=== PATIENT | male | born 1940 | race African-American/Black ===

== ENCOUNTER 2019-05-29 11:50 | Observation (INO) | payer MEDICARE ==
[2019-05-29] MEDS ORDERED: Aspirin Chewable 81 MG TAB ONE (12:13)
[2019-05-29 12:24] LABS: #Basophils 0.1 thou/uL (0.0-0.2); #Eosinphils 0.1 thou/uL (0.0-0.7); #Lymphocytes 1.9 thou/uL (1.20-3.40); #Monocytes 0.7 thou/uL (0.11-0.59); #Neutrophils 3.6 thou/uL (1.40-6.50); %Basophils 0.8 % (0.0-1.0); %Eosinophils 1.2 % (0.0-10.0); %Lymphocytes 29.9 % (21.0-51.0); %Monocytes 11.2 % (0.0-10.0); %Neutrophils 56.9 % (42.0-75.0); Hemoglobin 13.8 g/dL (14.0-18.0); Mean Corpuscular HGB CONC 34.6 g/dL (32.0-36.0); Mean Corpuscular Hemoglobin 30.6 pg (27.0-31.0); Mean Corpuscular Volume 88.4 fL (78.0-98.0); Mean Platelet Volume 10.1 fL (7.4-10.4); Platelet Count 137 thou/uL (130-400); RBC Distribution Width 13.3 % (11.5-14.5); Red Blood Cell (RBC) Count 4.51 mill/uL (4.70-6.10); White Blood Cell (WBC) Count 6.4 thou/uL (4.8-10.8)
[2019-05-29 12:54] LABS: ALT (SGPT) 15 U/L (8-55); AST (SGOT) 26 U/L (5-34); Albumin 3.6 g/dL (3.4-4.8); Alkaline Phosphatase 99 U/L (40-110); Anion Gap 14 mmol/L (10-20); BUN (Urea Nitrogen) 13 mg/dL (8.4-25.7); Bilirubin, Total 1.2 mg/dL (0.2-1.2); Calc. Creatinine Clearance 0 mL/min (70-130); Calcium 8.9 mg/dL (7.8-10.44); Carbon Dioxide 20 mmol/L (23-31); Chloride 105 mmol/L (98-107); Estimated GFR-MDRD 51; Globulin 4.2 g/dL (2.4-3.5); Glucose 169 mg/dL (83-110); Lipase 38 U/L (8-78); Magnesium 1.6 mg/dL (1.6-2.6); Potassium 4.3 mmol/L (3.5-5.1); Protein, Total 7.8 g/dL (5.8-8.1); Sodium 135 mmol/L (136-145)
[2019-05-29 13:10] LABS: CKMB 3.1 ng/mL (0-6.6)
--- NOTE | 2019-05-29 13:10 | RAD ---
PORTABLE CHEST 1 VIEW: Date: 05/29/2019 Time: 1152 hours HISTORY: Chest pain. Pacemaker dysfunction. FINDINGS: The heart size is normal. There is a left-sided pacemaker device with unipolar lead in the right vent ricle. The aorta is tortuous. The lungs are expanded without lobar consolidation, pneumothoraces, or pleural effusions. There is no evidence of felicia pulmonary edema. IMPRESSION: No acute process. POS: [facility]
--- NOTE | 2019-05-29 13:51 | CT ---
CT PULMONARY ANGIOGRAM WITH IV CONTRAST AND 3D POSTPROCESSING: Date: 05/29/2019 HISTORY: Atrial fibrillation, chest pain. FINDINGS: There is good contrast opacification of the pulmonary arterial vasculature without filling defects to suggest pulmonary embolism. There are vascular calcifications without aneurysmal dilatation of the t horacic aorta. No pleural or pericardial effusions are identified. No pneumothoraces, lobar consolida tion, or lung masses are noted. There is a 7 mm peripheral solid-appearing nodule in the right lower lobe (image 72, series 3). Another smaller 4.0 mm similar nodule is seen in the right lower lobe. Emp hysematous changes are present. There is a solid 6.0 mm nodule in the left upper lobe and a similar 4 .0 mm peripheral nodule in the left upper lobe. A 4.0 mm nodule is seen in the central portions of th e left upper lobe. There are degenerative changes in the spine. IMPRESSION: 1. No CT evidence of pulmonary embolism. 2. Indeterminate lung nodules. A follow-up CT scan of the chest is recommended in 6 months. POS: [facility]
[2019-05-29] MEDS ORDERED: Iopamidol 370 76% 100 ML VIAL ONE (14:52)
[2019-05-29] MEDS ORDERED: Labetalol HCl 100 MG/20 ML VIAL ONE (14:59)
--- NOTE | 2019-05-29 15:21 | PDOC.FPRHP ---
- History of Present Illness Chief Complaint: CP History of Present Illness: 79 yo M with pmh of CVA, afib, and CHF presents with 4 hr hx of substernal chest pressure that radiates to the neck. Since onset pt had 325mg ASA and pain resolved. He is currently asymptomatic. Regarding CHF he is unsure of EF. Reports last Echo was one year ago. He has never had AL. last stress was several years ago in [place]. No family hx of CAD. risk factors include HTN, Hx of CVA, Hx of smoking (quit 25years ago). 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 denies: chest pain, palpitation Gastrointestinal: denies: nausea, vomiting Genitourinary: denies: incontinence, dysuria Skin: denies: rashes, lesions Musculoskeletal: denies: pain, tenderness Neurological: denies: syncope, seizure Psychological: denies: anxiety, depression - Vital signs BP: 244/128, Pulse: 77, Resp: 18, Temp: 98.2 (Oral), Pain: 0, O2 sat: 100 on ( Room Air), Time: 05/29/2019 15:02. weight 121kg - Physical Exam Constitutional: NAD, awake, alert and oriented HEENT: normocephalic and atraumatic, EOMI, grossly normal vision, grossly normal hearing Neck: supple, FROM, trachea midline Chest: no-tender to palpation, no lesions Heart: normal S1/S2, no murmurs/rubs/gallops Lungs: CTAB, no respiratory distress Abdomen: soft, non-tender Musculoskeletal: normal structure, normal tone, other (LLE pitting edema +2) Neurological: DTRs 2+ -Neurological: aphasia (chronic) Skin: no rash/lesions, good turgor Heme/Lymphatic: no purpura, no petechia Psychiatric: normal mood and affect, good judgment and insight FMR H&P: Results - Labs Result Diagrams: 05/29/19 12:15 05/29/19 12:15 Lab results: WBC 6.4 thou/uL (4.8-10.8) 05/29/19 12:15 Hgb 13.8 g/dL (14.0-18.0) L 05/29/19 12:15 Hct 39.9 % (42.0-52.0) L 05/29/19 12:15 MCV 88.4 fL (78.0-98.0) 05/29/19 12:15 Plt Count 137 thou/uL (130-400) 05/29/19 12:15 Neutrophils % 56.9 % (42.0-75.0) 05/29/19 12:15 Sodium 135 mmol/L (136-145) L 05/29/19 12:15 Potassium 4.3 mmol/L (3.5-5.1) 05/29/19 12:15 Chloride 105 mmol/L (98-107) 05/29/19 12:15 Carbon Dioxide 20 mmol/L (23-31) L 05/29/19 12:15 BUN 13 mg/dL (8.4-25.7) 05/29/19 12:15 Creatinine 1.59 mg/dL (0.7-1.3) H 05/29/19 12:15 Glucose 169 mg/dL (83-110) H 05/29/19 12:15 Calcium 8.9 mg/dL (7.8-10.44) 05/29/19 12:15 Total Bilirubin 1.2 mg/dL (0.2-1.2) 05/29/19 12:15 AST 26 U/L (5-34) 05/29/19 12:15 ALT 15 U/L (8-55) 05/29/19 12:15 Alkaline Phosphatase 99 U/L (40-110) 05/29/19 12:15 CK-MB (CK-2) 3.1 ng/mL (0-6.6) 05/29/19 12:15 B-Natriuretic Peptide 174.9 pg/mL (0-100) H 05/29/19 12:15 Serum Total Protein 7.8 g/dL (5.8-8.1) 05/29/19 12:15 Albumin 3.6 g/dL (3.4-4.8) 05/29/19 12:15 Lipase 38 U/L (8-78) 05/29/19 12:15 FMR H&P: A/P - Problem List (1) Chest pain Current Visit: Yes Status: Acute Code(s): R07.9 - CHEST PAIN, UNSPECIFIED (2) Edema, lower extremity Current Visit: Yes Status: Acute Code(s): R60.0 - LOCALIZED EDEMA (3) Lung nodule Current Visit: Yes Status: Acute Code(s): R91.1 - SOLITARY PULMONARY NODULE (4) CHF (congestive heart failure) Current Visit: Yes Status: Acute Code(s): I50.9 - HEART FAILURE, UNSPECIFIED (5) CKD (chronic kidney disease) Current Visit: Yes Status: Acute Code(s): N18.9 - CHRONIC KIDNEY DISEASE, UNSPECIFIED (6) Afib Current Visit: Yes Status: Acute Code(s): I48.91 - UNSPECIFIED ATRIAL FIBRILLATION (7) HTN (hypertension) Current Visit: Yes Status: Acute Code(s): I10 - ESSENTIAL (PRIMARY) HYPERTENSION (8) HLD (hyperlipidemia) Current Visit: Yes Status: Acute Code(s): E78.5 - HYPERLIPIDEMIA, UNSPECIFIED (9) Seizure disorder Current Visit: Yes Status: Acute Code(s): G40.909 - EPILEPSY, UNSP, NOT INTRACTABLE, WITHOUT STATUS EPILEPTICUS - Plan CP, 2/2 ACS vs. MSK vs. GI A- trop .06 on presentation, could be 2/2 CKD. EKG shows no ST elevation. CXR and CT chest show no etiology of pain. P- admit to tele obs -trend trops -ASA daily -nitro SL prn -plan for stress test after negative serial trops LLE edema A- pt reports it is chronic however he has never had US P- will get US Lung nodules A- seen on Chest CT P- recommend f/u imaging in 6 months outpt CHF -I/Os, daily weights, home meds CKD3 -MD aware, will avoid nephrotoxic meds. Renally dose meds afib, HTN, HLD, Hx of CVA, seizure d/o -stable, continue home medications CODE: FULL
[2019-05-29] MEDS ORDERED: hydrALAZINE 20 MG/ML VIAL ONE (15:22)
[2019-05-29] MEDS ORDERED: Ondansetron ODT 4 MG TAB PO PRN (16:22)
[2019-05-29] MEDS ORDERED: Acetaminophen 325 MG TAB PO PRN (16:22)
[2019-05-29] MEDS ORDERED: Calcium Carbonate 500 MG ChewTAB PO PRN (16:22)
[2019-05-29] MEDS ORDERED: Nitroglycerin 0.4 MG TAB (25 Tab Bottle) SL PRN (16:22)
[2019-05-29 16:29] VITALS: BMI 34.4
--- NOTE | 2019-05-29 17:01 | ULT ---
LEFT LOWER EXTREMITY DOPPLER VENOUS ULTRASOUND PROVIDED CLINICAL HISTORY: Left lower extremity edema and concern for DVT TECHNIQUE: Grayscale and color Doppler sonography with spectral analysis was performed of the left common femora l, femoral, popliteal, posterior tibial, greater saphenous and profunda femoral veins. FINDINGS: There is normal compression, flow and augmentation seen within the deep venous structures o f the left lower extremity. IMPRESSION: No sonographic evidence for left lower extremity deep venous thrombosis. There is subcutaneous edema seen within the left foreleg.
[2019-05-29 18:49] LABS: Troponin I 0.078 ng/mL (< 0.028)
[2019-05-29] MEDS ORDERED: Atorvastatin Calcium 40 MG TAB PO SCH (21:00)
[2019-05-29] MEDS ORDERED: hydrALAZINE 25 MG TAB PO SCH (21:00)
[2019-05-29] MEDS ORDERED: levETIRAcetam 500 MG TAB PO SCH (21:00)
[2019-05-29] MEDS: Apixaban 5 MG TAB PO SCH (21:17)
[2019-05-29 22:37] LABS: Troponin I 0.074 ng/mL (< 0.028)
[2019-05-29 23:08] LABS: Hemoglobin 13.7 g/dL (14.0-18.0); Platelet Count 126 thou/uL (130-400)
[2019-05-30 05:19] LABS: #Eosinphils 0.1 thou/uL (0.0-0.7); #Lymphocytes 1.7 thou/uL (1.20-3.40); #Monocytes 0.7 thou/uL (0.11-0.59); #Neutrophils 3.1 thou/uL (1.40-6.50); %Basophils 0.5 % (0.0-1.0); %Eosinophils 1.7 % (0.0-10.0); %Lymphocytes 30.1 % (21.0-51.0); %Neutrophils 54.7 % (42.0-75.0); Mean Corpuscular HGB CONC 34.9 g/dL (32.0-36.0); Mean Corpuscular Hemoglobin 30.9 pg (27.0-31.0); Mean Corpuscular Volume 88.4 fL (78.0-98.0); Mean Platelet Volume 10.2 fL (7.4-10.4); Platelet Count 134 thou/uL (130-400); RBC Distribution Width 13.3 % (11.5-14.5); Red Blood Cell (RBC) Count 4.53 mill/uL (4.70-6.10); White Blood Cell (WBC) Count 5.6 thou/uL (4.8-10.8)
[2019-05-30] MEDS: cloNIDine 0.2 MG TAB PO PRN ×2 (05:21→15:00)
[2019-05-30 05:29] LABS: Anion Gap 12 mmol/L (10-20); BUN (Urea Nitrogen) 10 mg/dL (8.4-25.7); Calc. Creatinine Clearance 76 mL/min (70-130); Carbon Dioxide 24 mmol/L (23-31); Chloride 105 mmol/L (98-107); Estimated GFR-MDRD 62; Glucose 111 mg/dL (83-110); Potassium 3.6 mmol/L (3.5-5.1); Sodium 137 mmol/L (136-145)
--- NOTE | 2019-05-30 08:55 | PDOC.FM ---
- Subjective Subjective: Pt doing well with no complaints, good rest overnight. No CP, no palpitations, no sob, no cough - Objective Vital Signs & Weight: Vital Signs (12 hours) Temp Pulse Resp BP BP Pulse Ox 05/30/19 07:45 97.4 F L 62 18 181/93 H 99 05/30/19 06:38 66 182/89 H 100 05/30/19 05:21 206/96 H 05/30/19 05:17 206/96 H 05/30/19 04:28 98.6 F 79 16 100 05/30/19 00:38 98.6 F 62 16 175/91 H 100 Weight Weight 118.75 kg I&O: 05/29/19 05/30/19 05/31/19 06:59 06:59 06:59 Intake Total 1210 Output Total 1885 150 Balance -675 -150 Result Diagrams: 05/30/19 04:49 05/30/19 04:49 Phys Exam - Physical Examination Constitutional: NAD HEENT: moist MMs, sclera anicteric Neck: supple, full ROM Respiratory: no wheezing, clear to auscultation bilateral Cardiovascular: RRR, no significant murmur Gastrointestinal: soft, non-tender Musculoskeletal: pulses present, edema present (chronic) Neurological: normal sensation, moves all 4 limbs Psychiatric: normal affect, A&O x 3 Skin: no rash, normal turgor Dx/Plan (1) Chest pain Code(s): R07.9 - CHEST PAIN, UNSPECIFIED Status: Acute (2) Edema, lower extremity Code(s): R60.0 - LOCALIZED EDEMA Status: Acute (3) Lung nodule Code(s): R91.1 - SOLITARY PULMONARY NODULE Status: Acute (4) CHF (congestive heart failure) Code(s): I50.9 - HEART FAILURE, UNSPECIFIED Status: Acute (5) CKD (chronic kidney disease) Code(s): N18.9 - CHRONIC KIDNEY DISEASE, UNSPECIFIED Status: Acute (6) Afib Code(s): I48.91 - UNSPECIFIED ATRIAL FIBRILLATION Status: Acute (7) HTN (hypertension) Code(s): I10 - ESSENTIAL (PRIMARY) HYPERTENSION Status: Acute (8) HLD (hyperlipidemia) Code(s): E78.5 - HYPERLIPIDEMIA, UNSPECIFIED Status: Acute (9) Seizure disorder Code(s): G40.909 - EPILEPSY, UNSP, NOT INTRACTABLE, WITHOUT STATUS EPILEPTICUS Status: Acute - Plan Plan: CP, 2/2 ACS vs. MSK vs. GI A- stable, pt currently asymptomatic, trops .069->.078->.074. Likely a chronic elevation 2/2 CKD. EKG shows no ST elevation. CXR and CT chest show no etiology of pain. P- ASA daily -nitro SL prn -plan for stress test after negative serial trops Lung nodules A- seen on Chest CT P- recommend f/u imaging in 6 months outpt LLE edema -chronic, LE US unremarkable CHF -I/Os, daily weights, home meds CKD3 -MD aware, will avoid nephrotoxic meds. Renally dose meds afib, HTN, HLD, Hx of CVA, seizure d/o -stable, continue home medications CODE: FULL Addendum - Attending - Attending Attestation Date/Time: 05/30/19 [id number] I personally evaluated the patient and discussed the management with Dr. Powell. I agree with the History, Examination, Assessment and Plan documented above with any addition or exceptions noted below. Await cardiology input.
[2019-05-30] MEDS ORDERED: Tamsulosin HCl 0.4 MG CAP PO SCH ×2 (09:00)
[2019-05-30] MEDS ORDERED: Famotidine 20 MG TAB PO SCH (09:00)
[2019-05-30] MEDS ORDERED: Bupropion 150 MG XL TAB PO SCH (09:00)
[2019-05-30] MEDS ORDERED: Aspirin 81 mg Enteric Coated Tablet PO SCH (09:00)
[2019-05-30] MEDS ORDERED: hydrALAZINE 25 MG TAB PO SCH (09:00)
[2019-05-30] MEDS: Apixaban 5 MG TAB PO SCH (09:01)
[2019-05-30] MEDS: Furosemide 20 MG TAB PO SCH ×2 (09:02→15:00)
--- NOTE | 2019-05-30 13:59 | NM ---
EXAM: Nuclear Medicine Cardiac SPECT with EF and wall motion: HISTORY: Chest pain Protocol: Exam was performed using adenosine protocol. The patient is injected with 27.0 millicuries of technetium 99m sestamibi intravenously for stress im ages. The patient is injected with 9.4 millicuries of technetium 99 sestamibi intravenously for resting jaylen ges. Multiple SPECT images are performed in the short axis, vertical long axis, and horizontal long axis. FINDINGS: No scan evidence for infarct or ischemia. TID:0.91 LHR:0.30 EDV:110 mL EF:54% Wall motion:Unremarkable IMPRESSION: Unremarkable cardiac SPECT with EF and wall motion.
[2019-05-30 14:53] VITALS: TEMP 97.6
--- NOTE | 2019-05-30 16:29 | CON ---
DATE OF CONSULTATION: 05/30/2019 REASON FOR CONSULTATION: Chest pain. HISTORY OF PRESENT ILLNESS: Mr. Nevarez is a pleasant 79-year-old gentleman who comes to the hospital for chest pain. He apparently moved to this area from [place] about a month ago. He ran out of medicines a week ago. He presented with chest tightness and a very elevated blood pressure. The 1st recorded blood pressure was in 230s/130s in the ER. He was given aspirin and some nitroglycerin paste. Eventually, his pain improved. On my evaluation, his pain is better. He denies any chest pain, tightness, or pressure. His blood pressure is still elevated in the 180s. He has a history of atrial fibrillation and has been on Eliquis, but again he ran out of all these medications about a week ago. PAST MEDICAL HISTORY: 1. Atrial fibrillation. 2. Hypertension. 3. Hyperlipidemia. 4. History of CVA with chronic aphasia. 5. Seizure disorder. 6. Chronic kidney disease, stage 3. 7. History of heart failure, unclear what type. 8. A single-chamber pacemaker placement, unclear as to reason why, this is not a defibrillator. SURGICAL HISTORY: Pacemaker placement, single-chamber. FAMILY HISTORY: Noncontributory. SOCIAL HISTORY: No alcohol, tobacco, or drugs. He smoked tobacco and marijuana about 20 years ago. REVIEW OF SYSTEMS: A 12-point review of systems was done and was all negative unless stated in the history of present illness. PHYSICAL EXAMINATION: VITAL SIGNS: Temperature 97.6, pulse 106, respiratory rate 20, saturating 100% on room air, blood pressure 181/93, but has been as high as 203/111 and on admission 230/130. GENERAL: Awake, alert, and oriented to person and place, difficulty with time, in no distress. HEENT: Normocephalic and atraumatic. NECK: Supple. LUNGS: Clear to auscultation. CARDIOVASCULAR: S1 and S2. Irregular heart rate in the 70s. ABDOMEN: Soft. Positive bowel sounds. EXTREMITIES: Trace edema. SKIN: Warm and dry. LABORATORY DATA: Laboratory work was reviewed. CBC is unremarkable. White count of 5.6, hemoglobin of 14, hematocrit 40.1, and platelet count of 134. D-dimer was elevated at 1.21. Chemistries were unremarkable except for creatinine of 1.35, up from 1.32, some minimal increase. GFR is 62. Troponin was 0.07, 0.07, and 0.07 and BNP of 174. CT of the chest was unremarkable except for a pulmonary nodule, which will be followed by primary team. Stress test was unremarkable with no evidence of reversible ischemia and LV function at 54%. ASSESSMENT AND PLAN: 1. Chest pain. 2. Hypertensive emergency. 3. Medication noncompliance. 4. History of cerebrovascular accident. 5. What appears to be chronic atrial fibrillation. PLAN: 1. Restart Eliquis for stroke prophylaxis. 2. Restart home medications for blood pressure control. Up titrate to blood pressure less than 160 before discharge. 3. Most likely his episode of chest pain was related to his elevated blood pressure, it got better with blood pressure control more than anything else. Thank you for allowing me to participate in the care of this patient. We will continue to follow. Job ID: [id number]
[2019-05-30 16:37] VITALS: BP 140/83
--- NOTE | 2019-05-30 19:33 | DIS ---
DATE OF ADMISSION: 05/29/2019 DATE OF DISCHARGE: 05/30/2019 RESIDENT: Carlo Powell MD. I saw this patient for a total of 2 days. ADMITTING ATTENDING: Carlo Clement MD. CONSULTS: Cardiology, Dr. Hall. PROCEDURES: 1. Chest x-ray on 05/29/2019, no acute cardiopulmonary processes. 2. Chest thorax CTA on 05/29/2019. Impression; some scattered pulmonary nodules. Recommend followup in 6 months. 3. Vascular ultrasound on 05/29/2019. No evidence of DVT in left lower extremity. 4. Stress test nuclear medicine on 05/30/2019. Impression; unremarkable cardiac SPECT with EF and wall motion. DISCHARGE MEDICATIONS: 1. Atorvastatin 40 mg p.o. daily. 2. Eliquis 5 mg p.o. b.i.d. 3. Keppra 750 mg p.o. daily. 4. Metoprolol succinate ER 24 hours, 200 mg p.o. daily. 5. Wellbutrin. 6. Flomax 0.4 mg p.o. daily. 7. Clonidine 0.2 mg p.o. p.r.n. resumed at home. 8. Furosemide 20 mg p.o. b.i.d. 9. Hydralazine resumed at home. The patient did not know dosage, had 2 bottles left at home. 10. Famotidine 20 mg p.o. daily. DISCONTINUED MEDICATIONS: None. PRIMARY DIAGNOSIS: Chest pain, likely secondary to gastroesophageal reflux. SECONDARY DIAGNOSES: Left lower extremity edema; history of congestive heart failure; lung nodules; chronic kidney injury 3; atrial fibrillation; hypertension; hyperlipidemia; history of cerebrovascular accident with aphasia; seizure disorder. HISTORY OF PRESENT ILLNESS/HOSPITAL COURSE: This is a 79-year-old male, who presented to the ED with chest pain. He has history of CVA and so was admitted for chest pain rule out ACS. The troponins increased initially from 0.6 to 0.78, and then decreased to 0.074. Chest pain had resolved. EKG was normal. Chest x-ray was normal. The patient also had CT chest done, but no concern for PE, and the patient had left lower extremity edema. This and doppler ultrasound of the left lower extremity were both negative; however, they did incidentally find some pulmonary lung nodules, which recommended followup in 6 months. Cardiology was consulted as the patient had elevated troponins, for permission to get stress test. The patient did end up getting nuclear stress test, which was negative. The patient had plans for discharge home to follow up with PCP, Dr. Keenan and with Cardiology, Dr. Hall. DISPOSITION: Stable. DISCHARGE INSTRUCTIONS: 1. Location: Home. 2. Activity: As tolerated. 3. Diet: Diabetic and heart healthy diet. 4. Followup: Follow up with Dr. Keenan in 1 to [address] Hall in 2 to 3 weeks. Job ID: [id number]
== END 2019-05-30 18:30 | disposition home or self-care (01) ==
LOC: ERS 11:50 → 2SW 14:43
PROVIDERS: ADMIT Family Medicine; ATTEND Family Medicine
DX: R07.9 Chest pain, unspecified (principal); I16.1 Hypertensive emergency; R60.0 Localized edema; I13.0 Hypertensive heart and chronic kidney disease with heart failure and stage 1 through stage 4 chronic kidney disease, or unspecified chronic kidney disease; R91.1 Solitary pulmonary nodule; I50.9 Heart failure, unspecified; N18.3 Chronic kidney disease, stage 3 (moderate); I48.91 Unspecified atrial fibrillation; E78.5 Hyperlipidemia, unspecified; G40.909 Epilepsy, unspecified, not intractable, without status epilepticus; I69.320 Aphasia following cerebral infarction; Z79.01 Long term (current) use of anticoagulants; Z79.899 Other long term (current) drug therapy; Z91.14 Patient's other noncompliance with medication regimen; Z95.0 Presence of cardiac pacemaker
CPT/HCPCS: 36415; 71045; 71275; 78452; 80048; 80053; 82553; 83690; 83735; 83880; 84484; 85025; 85379; 93005; 93017; 96374; 96375; A9500; G0378; J0153; J0360; Q9967

== ENCOUNTER 2019-08-29 22:32 | Emergency (ER) | payer MEDICARE ==
[2019-08-29 23:21] LABS: #Basophils 0.1 thou/uL (0.0-0.2); #Eosinphils 0.1 thou/uL (0.0-0.7); #Lymphocytes 2.1 thou/uL (1.20-3.40); #Monocytes 0.6 thou/uL (0.11-0.59); #Neutrophils 2.5 thou/uL (1.40-6.50); %Basophils 1.1 % (0.0-1.0); %Eosinophils 2.1 % (0.0-10.0); %Lymphocytes 39.9 % (21.0-51.0); %Monocytes 11.1 % (0.0-10.0); %Neutrophils 45.8 % (42.0-75.0); Hemoglobin 13.5 g/dL (14.0-18.0); Mean Corpuscular HGB CONC 34.6 g/dL (32.0-36.0); Mean Corpuscular Hemoglobin 30.8 pg (27.0-31.0); Mean Platelet Volume 10.7 fL (7.4-10.4); Platelet Count 118 thou/uL (130-400); RBC Distribution Width 12.9 % (11.5-14.5); White Blood Cell (WBC) Count 5.3 thou/uL (4.8-10.8)
[2019-08-29 23:31] LABS: ALT (SGPT) 13 U/L (8-55); AST (SGOT) 19 U/L (5-34); Albumin 3.5 g/dL (3.4-4.8); Alkaline Phosphatase 107 U/L (40-110); Anion Gap 12 mmol/L (10-20); BUN (Urea Nitrogen) 19 mg/dL (8.4-25.7); Bilirubin, Total 0.5 mg/dL (0.2-1.2); Calc. Creatinine Clearance 0 mL/min (70-130); Calcium 8.6 mg/dL (7.8-10.44); Carbon Dioxide 23 mmol/L (23-31); Chloride 105 mmol/L (98-107); Estimated GFR-MDRD 55; Globulin 4.3 g/dL (2.4-3.5); Glucose 97 mg/dL (83-110); Potassium 4.3 mmol/L (3.5-5.1); Protein, Total 7.8 g/dL (5.8-8.1); Sodium 136 mmol/L (136-145)
--- NOTE | 2019-08-31 15:17 | EKG ---
Test Reason : Blood Pressure : / mmHG Vent. Rate : 078 BPM Atrial Rate : 127 BPM P-R Int : 000 ms QRS Dur : 092 ms QT Int : 412 ms P-R-T Axes : 000 052 -77 degrees QTc Int : 469 ms Atrial fibrillation with frequent ventricular-paced complexes Cannot rule out Inferior infarct , age undetermined Abnormal ECG Confirmed by ESTEFANI CHUA M.D. ([id number]), film editor SCARLETT CHARLES ([id number]) on 08/31/2019 3:16:49 PM Referred By: Confirmed By:ESTEFANI CHUA M.D.
== END 2019-08-29 23:31 | disposition home or self-care (01) ==
LOC: ERS 22:32
DX: I10 Essential (primary) hypertension (principal); E78.00 Pure hypercholesterolemia, unspecified; I48.91 Unspecified atrial fibrillation; Z79.899 Other long term (current) drug therapy
CPT/HCPCS: 80053; 85025; 93005

== ENCOUNTER 2019-11-30 12:25 | Inpatient (IN) | payer MEDICARE, OTHER ==
[2019-11-30 13:23] LABS: #Eosinphils 0.1 thou/uL (0.0-0.7); #Lymphocytes 1.7 thou/uL (1.20-3.40); #Monocytes 0.7 thou/uL (0.11-0.59); #Neutrophils 2.7 thou/uL (1.40-6.50); %Basophils 0.2 % (0.0-1.0); %Eosinophils 2.4 % (0.0-10.0); %Lymphocytes 33.3 % (21.0-51.0); %Monocytes 13.2 % (0.0-10.0); %Neutrophils 50.9 % (42.0-75.0); Hemoglobin 9.6 g/dL (14.0-18.0); Mean Corpuscular HGB CONC 33.8 g/dL (32.0-36.0); Mean Corpuscular Hemoglobin 28.9 pg (27.0-31.0); Mean Corpuscular Volume 85.4 fL (78.0-98.0); Mean Platelet Volume 9.6 fL (7.4-10.4); Platelet Count 181 thou/uL (130-400); RBC Distribution Width 13.6 % (11.5-14.5); Red Blood Cell (RBC) Count 3.33 mill/uL (4.70-6.10); White Blood Cell (WBC) Count 5.2 thou/uL (4.8-10.8)
[2019-11-30 13:30] LABS: INR-International Normal Ratio 1.8; PTT 38.8 sec (22.9-36.1); Prothrombin Time 21.1 sec (12.0-14.7)
[2019-11-30 13:43] LABS: ALT (SGPT) 12 U/L (8-55); AST (SGOT) 14 U/L (5-34); Albumin 3.3 g/dL (3.4-4.8); Alkaline Phosphatase 91 U/L (40-110); Anion Gap 15 mmol/L (10-20); BUN (Urea Nitrogen) 23 mg/dL (8.4-25.7); Bilirubin, Total 0.6 mg/dL (0.2-1.2); Calc. Creatinine Clearance 0 mL/min (70-130); Calcium 8.5 mg/dL (7.8-10.44); Carbon Dioxide 20 mmol/L (23-31); Chloride 106 mmol/L (98-107); Estimated GFR-MDRD 54; Globulin 4.2 g/dL (2.4-3.5); Glucose 103 mg/dL (83-110); Potassium 4.1 mmol/L (3.5-5.1); Protein, Total 7.5 g/dL (5.8-8.1); Sodium 137 mmol/L (136-145)
[2019-11-30] MEDS ORDERED: Acetaminophen 325 MG TAB PO PRN (14:00)
[2019-11-30] MEDS ORDERED: Ondansetron PF 4 MG/2 ML Vial IVP PRN (14:00)
[2019-11-30] MEDS ORDERED: Ondansetron ODT 4 MG TAB PO PRN (14:00)
[2019-11-30] MEDS ORDERED: Sodium Chloride 0.9% 1,000 ML IV SCH (14:00)
[2019-11-30] MEDS ORDERED: Calcium Carbonate 500 MG ChewTAB PO PRN (14:00)
[2019-11-30 15:57] LABS: Magnesium 1.8 mg/dL (1.6-2.6)
--- NOTE | 2019-11-30 15:59 | PDOC.HHP ---
Hospitalist HPI - History of Present Illness GI bleeding History of Present Illness: Patient is a 79-year-old male with atrial fibrillation on anticoagulation presented to the emergency room with bleeding per rectum over the last 3 to 4 days. He reports bright red blood moderate in amount when he was having bowel movement. He felt generally weak and fatigue however denies any lightheadedness, palpitations or syncope. He denies any nausea, abdominal pain, hematemesis or melena. He denies similar episode in the past. He reports that 2 to 3 years ago he had upper GI bleeding requiring EGD in [place]. Last dose of Eliquis was this morning. No chest pain, shortness of breath or palpitations reported. He normally follows Dr. Hall. In the emergency room is initial vital signs showed temperature 98.6 with respiration of 18 pulse rate of 76 with a blood pressure of 146/98. O2 saturation was 100% on room air. His hemoglobin was 9.6 compared to his baseline hemoglobin of 1314 in August of this year. INR was 1.8 with a PT of 21.1 and PTT of 38.8. Hospitalist ROS - Review of Systems Respiratory: denies: cough, dry, shortness of breath, hemoptysis, SOB with excertion, pleuritic pain, sputum, wheezing, other Cardiovascular: denies: chest pain, palpitations, orthopnea, paroxysmal noc. dyspnea, edema, light headedness, other All other systems reviewed; all pertinent +/- noted in HPI/Subj - Medication Medications: No known drug allergies Patient is unable to remember all of his home medication. 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 Spouse is the D POA - Exam General Appearance: NAD Eye: PERRL, anicteric sclera Eye - other findings: Pale conjunctiva ENT: normocephalic atraumatic, no oropharyngeal lesions Neck: supple, no JVD, no thyromegaly, no lymphadenopathy Heart: RRR, no gallops, no rubs, normal peripheral pulses Respiratory: no wheezes, no rales, no ronchi, normal chest expansion Gastrointestinal: soft, non-tender, non-distended, no guarding, no rigidity Extremities: no cyanosis, no clubbing, no edema Skin: normal turgor Neurological: cranial nerve grossly intact, normal sensation to touch, no weakness, no focal deficits Musculoskeletal: normal tone, normal strength, generalized weakness Psychiatric: normal affect, A&O x 3 Hospitalist Results - Labs Result Diagrams: 11/30/19 13:04 11/30/19 13:04 Lab results: WBC 5.2 thou/uL (4.8-10.8) 11/30/19 13:04 Hgb 9.6 g/dL (14.0-18.0) L 11/30/19 13:04 Hct 28.4 % (42.0-52.0) L 11/30/19 13:04 MCV 85.4 fL (78.0-98.0) 11/30/19 13:04 Plt Count 181 thou/uL (130-400) 11/30/19 13:04 Neutrophils % 50.9 % (42.0-75.0) 11/30/19 13:04 Sodium 137 mmol/L (136-145) 11/30/19 13:04 Potassium 4.1 mmol/L (3.5-5.1) 11/30/19 13:04 Chloride 106 mmol/L (98-107) 11/30/19 13:04 Carbon Dioxide 20 mmol/L (23-31) L 11/30/19 13:04 BUN 23 mg/dL (8.4-25.7) 11/30/19 13:04 Creatinine 1.51 mg/dL (0.7-1.3) H 11/30/19 13:04 Glucose 103 mg/dL (83-110) 11/30/19 13:04 Calcium 8.5 mg/dL (7.8-10.44) 11/30/19 13:04 Total Bilirubin 0.6 mg/dL (0.2-1.2) 11/30/19 13:04 AST 14 U/L (5-34) 11/30/19 13:04 ALT 12 U/L (8-55) 11/30/19 13:04 Alkaline Phosphatase 91 U/L (40-110) 11/30/19 13:04 Serum Total Protein 7.5 g/dL (5.8-8.1) 11/30/19 13:04 Albumin 3.3 g/dL (3.4-4.8) L 11/30/19 13:04 - EKG Interpretation EKG: Paced rhythm on telemetry monitorby my review Hospitalist H&P A/P - Problem (1) GI bleeding Code(s): K92.2 - GASTROINTESTINAL HEMORRHAGE, UNSPECIFIED Status: Acute (2) Acute blood loss anemia Code(s): D62 - ACUTE POSTHEMORRHAGIC ANEMIA Status: Acute (3) Chronic atrial fibrillation Code(s): I48.20 - CHRONIC ATRIAL FIBRILLATION, UNSPECIFIED Status: Acute (4) Iron deficiency anemia due to chronic blood loss Code(s): D50.0 - IRON DEFICIENCY ANEMIA SECONDARY TO BLOOD LOSS (CHRONIC) St atus: Acute (5) CKD (chronic kidney disease) stage 3, GFR 30-59 ml/min Code(s): N18.3 - CHRONIC KIDNEY DISEASE, STAGE 3 (MODERATE) Status: Chronic (6) HLD (hyperlipidemia) Code(s): E78.5 - HYPERLIPIDEMIA, UNSPECIFIED Status: Chronic (7) HTN (hypertension) Code(s): I10 - ESSENTIAL (PRIMARY) HYPERTENSION Status: Chronic (8) Seizure disorder Code(s): G40.909 - EPILEPSY, UNSP, NOT INTRACTABLE, WITHOUT STATUS EPILEPTICUS Status: Chronic - Plan Plan: Patient will be monitored on the medical floor. Will monitor H&H closely. Start IV Protonix twice daily. He will receive IV iron. Clear liquid diet. Will check orthostatic vitals. Monitor vital signs every 4 hourly. Hold Eliquis. Consult gastroenterology service. Physical therapy evaluation. Resume home medications once verified. Recheck labs in a.m. Replace magnesium. Patient will require 2 to 3 days for stabilization. GI recommended to wait for 24 to 48 hours prior to any endoscopic intervention due to anticoagulation. His last dose of Eliquis was this morning.
[2019-11-30] MEDS ORDERED: Magnesium 2 GM/50 ML 2 GM in Premix Bag 1 BAG IVPB SCH (16:15)
[2019-11-30 17:19] VITALS: BMI 31.7
[2019-11-30] MEDS ORDERED: Iron, Sodium Ferric Gluconate 250 MG in Sodium Chloride 0.9% 100 ML IVPB SCH (18:00)
[2019-11-30 18:17] LABS: Hemoglobin 10.3 g/dL (14.0-18.0)
[2019-11-30] MEDS: cloNIDine 0.1 MG TAB PO PRN (19:53)
[2019-11-30] MEDS: Folic Acid 1 MG TAB PO SCH (20:16)
[2019-11-30] MEDS: Cyanocobalamin (Vitamin B-12) 1,000 MCG TAB PO SCH (20:16)
[2019-11-30] MEDS: Atorvastatin Calcium 40 MG TAB PO SCH (20:16)
[2019-11-30] MEDS: Multivit, Therapeutic 1 TAB PO SCH (20:16)
[2019-11-30] MEDS: Pantoprazole 40 MG VIAL IVP SCH (20:16)
[2019-12-01] MEDS: cloNIDine 0.1 MG TAB PO PRN ×2 (00:03→08:08)
[2019-12-01 06:25] LABS: #Eosinphils 0.1 thou/uL (0.0-0.7); #Lymphocytes 0.8 thou/uL (1.20-3.40); #Neutrophils 6.2 thou/uL (1.40-6.50); %Basophils 0.4 % (0.0-1.0); %Eosinophils 0.9 % (0.0-10.0); %Lymphocytes 10.4 % (21.0-51.0); %Neutrophils 76.3 % (42.0-75.0); Hemoglobin 9.4 g/dL (14.0-18.0); Mean Corpuscular Hemoglobin 29.2 pg (27.0-31.0); Mean Corpuscular Volume 85.9 fL (78.0-98.0); Mean Platelet Volume 9.2 fL (7.4-10.4); Platelet Count 168 thou/uL (130-400); RBC Distribution Width 13.6 % (11.5-14.5); Red Blood Cell (RBC) Count 3.22 mill/uL (4.70-6.10); White Blood Cell (WBC) Count 8.1 thou/uL (4.8-10.8)
[2019-12-01 06:45] LABS: Anion Gap 14 mmol/L (10-20); BUN (Urea Nitrogen) 21 mg/dL (8.4-25.7); Calc. Creatinine Clearance 69 mL/min (70-130); Calcium 8.5 mg/dL (7.8-10.44); Carbon Dioxide 21 mmol/L (23-31); Chloride 104 mmol/L (98-107); Estimated GFR-MDRD 59; Glucose 112 mg/dL (83-110); Sodium 135 mmol/L (136-145)
[2019-12-01] MEDS: Pantoprazole 40 MG VIAL IVP SCH ×2 (08:08→20:21)
[2019-12-01] MEDS: Furosemide 20 MG TAB PO SCH (08:08)
[2019-12-01] MEDS: levETIRAcetam 500 MG TAB PO SCH (08:08)
[2019-12-01] MEDS ORDERED: Iron, Sodium Ferric Gluconate 250 MG in Sodium Chloride 0.9% 100 ML IVPB SCH (09:15)
--- NOTE | 2019-12-01 10:36 | CON ---
DATE OF CONSULTATION: 11/30/2019 REFERRING PHYSICIAN: Baldomero Rodrigues MD REASON FOR CONSULTATION: Rectal bleeding, anemia due to blood loss. HISTORY OF PRESENT ILLNESS: Mr. Yony Nevarez is a 79-year-old male, hospitalized this evening through the ER because of hematochezia. The patient has been having rectal bleeding over the last 3 to 4 days. The bleeding is bright red in color. The bleeding is painless. He has no perianal discomfort, status post hemorrhoids. No abdominal pain. Denies nausea, vomiting. No history of dyspepsia, indigestion. The patient is on Eliquis because of previous stroke. The patient never had a colonoscopy; however, he has had a oscopy a few years ago for bleeding ulcer in the past. The patient has had a CVS recovery. He has good movement of the extremities, but he has expressive aphasia. He tries to stutter and try to express himself and takes a while. The patient used to live in [place] before. He has moved to recently. Apparently, he was seen in the ER in May of 2019 with chest pain and uncontrolled hypertension. This was because of his medication and could not refill the medication. He was hospitalized and was seen by Dr. Melvin Hall. It was felt the chest pain is because probably from the uncontrolled hypertension. He was put back on hypertension medicines and blood pressure normalized. He has done well since discharge. In the last admission in May of 2019, he had a normal CBC. At this time when he came to the ER, he is anemic with hemoglobin of 9.8. The patient had no other relevant history. ALLERGIES: NONE. SOCIAL HISTORY: He is . He does not drink alcohol and does not smoke. MEDICAL ILLNESS: 1. Obesity. 2. Hypertension. 3. Hyperlipidemia. 4. Status post CVA with residual expressive aphasia. 5. Status post pacemaker implant. 6. Prostatic hypertrophy. MEDICATIONS: List reviewed, which include: 1. Clonidine. 2. Tamsulosin. 3. Atorvastatin. 4. Famotidine. 5. Furosemide. 6. Metoprolol. 7. Levetiracetam. FAMILY HISTORY: Father had some unknown cancer. REVIEW OF SYSTEMS: Remarkable for previous CVA with recovery, but he has right aphasia, history of seizure disorder. LUNGS: No chronic coughing. No hemoptysis. No dyspnea. CARDIOVASCULAR: No chest pain. No palpitation. No orthopnea or PND. GI: No abdominal pain, no nausea, no vomiting, but has hematochezia. : No dysuria, hematuria or frequent urination. MUSCULOSKELETAL: No back pain or arthralgias. NEUROPSYCHIATRY: No depression, anxiety. HEENT: No chronic headache. Eyes, no impaired vision, although he has no hearing loss. Nose, no nosebleed. Throat, no sore throat or dysphagia. PHYSICAL EXAMINATION: GENERAL: He is awake, alert, and communicative. However, he has difficulty expressing things and due to this, does stutter. VITAL SIGNS: Afebrile. Pulse is 81, blood pressure is 177/90. HEENT: Conjunctivae are clear. NECK: Supple. CARDIOVASCULAR: Normal heart sounds. LUNGS: Clear to auscultation. ABDOMEN: Soft and nontender. No organomegaly. No masses. EXTREMITIES: Reveal no edema. LABORATORY DATA: CBC; WBC 5200, hemoglobin 9.6, hematocrit 28.4, MCV 85.4, platelet count 181,000, polymorphs 50, lymphocytes 33, monocytes 13. His Chem-7 shows normal electrolytes, BUN is 23, creatinine is 1.51, glucose 103, calcium 8.5. Iron is 35, TIBC 278, ferritin 44.05, bilirubin 0.6, AST 14, ALT 12, alkaline phosphatase 91, albumin 3.3. CLINICAL IMPRESSION: 1. A 79-year-old male, previous cerebrovascular accident, expressive aphasia. Presents with hematochezia, which is painless. The bleeding appears to be mild to moderate as blood count is found low at 9.8 to 10.3. He never had a colonoscopy. There is no family history of colon cancer. 2. Status post cerebrovascular accident with residual expressive aphasia. 3. Hypertension. 4. Hyperlipidemia. 5. Seizure disorder. 6. Prostatic hypertrophy. 7. Status post pacemaker implant. RECOMMENDATION: 1. Hold of Eliquis. 2. Serial H and H. 3. Clear liquid diet. 4. Colonoscopy, hopefully Monday as he needs to be a code status for 48 hours. Job ID: [id number]
[2019-12-01 12:24] LABS: SARS-CoV-2 MS2 Positive; SARS-CoV-2 N Gene Negative; SARS-CoV-2 S Gene Negative; SARS-CoV-2 by NAA Not Detected (NotDetected); SARS-CoV-2 orf1ab Negative
[2019-12-01 16:41] LABS: Hemoglobin 9.8 g/dL (14.0-18.0)
[2019-12-01] MEDS ORDERED: GoLYTELY 4,000 ml Bottle PO SCH (17:00)
--- NOTE | 2019-12-01 17:50 | PDOC.HOSPP ---
- Subjective Encounter Date: 12/01/19 Encounter Time: 17:49 Subjective: Patient had 2 episodes of mild to moderate amount of bright red blood per rectum earlier today. Feels generally weak. Denies any lightheadedness, chest pain or palpitations. No nausea, vomiting or abdominal pain reported. - Objective Vital Signs & Weight: Vital Signs (12 hours) Temp Pulse Resp BP BP Pulse Ox 12/01/19 16:00 98.0 F 61 20 159/77 H 96 12/01/19 11:25 97.3 F L 61 20 119/77 98 12/01/19 09:15 151/78 H 12/01/19 08:08 182/96 H 12/01/19 08:00 97.9 F 97 20 182/96 H 97 12/01/19 07:55 97 Weight Weight 247 lb I&O: 11/30/19 12/01/19 12/02/19 06:59 06:59 06:59 Intake Total 400 Output Total 800 Balance -400 Result Diagrams: 12/01/19 16:31 12/01/19 06:09 Hospitalist ROS - Review of Systems Respiratory: denies: cough, dry, shortness of breath, hemoptysis, SOB with excertion, pleuritic pain, sputum, wheezing, other Cardiovascular: denies: chest pain, palpitations, orthopnea, paroxysmal noc. dyspnea, edema, light headedness, other - Medication Medications: Active Medications Generic Name Dose Route Start Last Admin Trade Name Freq PRN Reason Stop Dose Admin Atorvastatin Calcium 40 mg 11/30/19 21:00 11/30/19 20:16 Atorvastatin Calcium 40 Mg Tab PO 40 mg HS KHRIS Administration Clonidine 0.1 mg 11/30/19 15:39 12/01/19 08:08 Clonidine 0.1 Mg Tab PO 0.1 mg Q4H PRN Administration SBP Greater Than 180 Cyanocobalamin 1,000 mcg 11/30/19 21:00 11/30/19 20:16 Cyanocobalamin (Vitamin B-12) 1,000 Mcg Tab PO 1,000 mcg HS KHRIS Administration Folic Acid 1 mg 11/30/19 21:00 11/30/19 20:16 Folic Acid 1 Mg Tab PO 1 mg HS KHRIS Administration Furosemide 20 mg 12/01/19 09:00 12/01/19 08:08 Furosemide 20 Mg Tab PO 20 mg DAILY KHRIS Administration Levetiracetam 750 mg 12/01/19 09:00 12/01/19 08:08 Levetiracetam 500 Mg Tab PO 750 mg DAILY KHRIS Administration Metoprolol Succinate 100 mg 11/30/19 21:00 12/01/19 08:08 Metoprolol Succinate Xl 100 Mg Tab PO 100 mg BID KHRIS Administration Multivitamins 1 tab 11/30/19 21:00 11/30/19 20:16 Multivit, Therapeutic 1 Tab PO 1 tab HS KHRIS Administration Pantoprazole Sodium 40 mg 11/30/19 21:00 12/01/19 08:08 Pantoprazole 40 Mg Vial IVP 40 mg Q12HR KHRIS Administration Polyethylene Glycol/Electrolytes 4,000 ml 12/01/19 17:00 12/01/19 17:34 Golytely 4,000 Ml Bottle PO 12/01/19 23:59 4,000 ml ONE KHRIS Administration - Exam General Appearance: ill appearing Neck: supple, no JVD Heart: no gallops, no rubs Respiratory: no wheezes, no rales, no ronchi Gastrointestinal: non-tender, non-distended, no guarding, no rigidity Neurological: no new deficit, speech deficit Musculoskeletal: generalized weakness Psychiatric: A&O x 3 Hosp A/P (1) GI bleeding Code(s): K92.2 - GASTROINTESTINAL HEMORRHAGE, UNSPECIFIED (2) Acute blood loss anemia Code(s): D62 - ACUTE POSTHEMORRHAGIC ANEMIA (3) Chronic atrial fibrillation Code(s): I48.20 - CHRONIC ATRIAL FIBRILLATION, UNSPECIFIED (4) Iron deficiency anemia due to chronic blood loss Code(s): D50.0 - IRON DEFICIENCY ANEMIA SECONDARY TO BLOOD LOSS (CHRONIC) (5) CKD (chronic kidney disease) stage 3, GFR 30-59 ml/min Code(s): N18.3 - CHRONIC KIDNEY DISEASE, STAGE 3 (MODERATE) (6) HLD (hyperlipidemia) Code(s): E78.5 - HYPERLIPIDEMIA, UNSPECIFIED (7) HTN (hypertension) Code(s): I10 - ESSENTIAL (PRIMARY) HYPERTENSION (8) Seizure disorder Code(s): G40.909 - EPILEPSY, UNSP, NOT INTRACTABLE, WITHOUT STATUS EPILEPTICUS - Plan Hemoglobin dropped to 9.4 this morning from 10.3. Received IV iron yesterday. Another dose of IV iron later today. Replace magnesium. Continue IV PPI. Eliquis on hold. GI input appreciated. EGD and colonoscopy in a.m. Monitor H&H closely. Recheck labs in a.m.
--- NOTE | 2019-12-01 18:22 | PRG ---
DATE OF SERVICE: 12/01/2019 SUBJECTIVE: This is a 79-year-old male, hospitalized with painless rectal bleeding. The patient was yesterday. Plan is being made for a colonoscopy tomorrow. Blood count has been fairly stable. Admitting hemoglobin 9.6 today, the last one at 4 o'clock today is 9.8, hematocrit 28.8. His stools are brownish and he did not see any blood today. No abdominal pain. No vomiting. He is ambulating inside the room. He offers no complaints. PHYSICAL EXAMINATION: GENERAL: He is obese. VITAL SIGNS: Afebrile, pulse is 61, blood pressure 159/77. CARDIOVASCULAR SYSTEM: Normal heart sounds. LUNGS: Clear to auscultation. ABDOMEN: Soft. No organomegaly. No tenderness. No masses. CLINICAL IMPRESSION: 1. Gastrointestinal bleeding, etiology unclear. 2. Blood count is stable and has no further drop from admission. 3. Status post cerebrovascular accident with residual expressive aphasia. 4. Hypertension. 5. Hyperlipidemia. 6. Pacemaker insertion. PLAN: Colonoscopy tomorrow. The patient . I will prep the patient for colonoscopy tomorrow and hopefully can be done tomorrow morning sometime. Job ID: [id number]
[2019-12-01] MEDS: Atorvastatin Calcium 40 MG TAB PO SCH (20:19)
[2019-12-01] MEDS: Cyanocobalamin (Vitamin B-12) 1,000 MCG TAB PO SCH (20:19)
[2019-12-01] MEDS: Folic Acid 1 MG TAB PO SCH (20:19)
[2019-12-01] MEDS: Tamsulosin HCl 0.4 MG CAP PO SCH (20:19)
[2019-12-01] MEDS: Multivit, Therapeutic 1 TAB PO SCH (20:20)
[2019-12-02 06:12] LABS: #Eosinphils 0.1 thou/uL (0.0-0.7); #Lymphocytes 1.5 thou/uL (1.20-3.40); #Monocytes 0.9 thou/uL (0.11-0.59); #Neutrophils 3.6 thou/uL (1.40-6.50); %Basophils 0.3 % (0.0-1.0); %Eosinophils 1.4 % (0.0-10.0); %Lymphocytes 24.9 % (21.0-51.0); %Monocytes 14.4 % (0.0-10.0); Hemoglobin 8.9 g/dL (14.0-18.0); Mean Corpuscular HGB CONC 32.4 g/dL (32.0-36.0); Mean Corpuscular Hemoglobin 27.8 pg (27.0-31.0); Mean Corpuscular Volume 85.6 fL (78.0-98.0); Mean Platelet Volume 9.1 fL (7.4-10.4); Platelet Count 172 thou/uL (130-400); Red Blood Cell (RBC) Count 3.19 mill/uL (4.70-6.10); White Blood Cell (WBC) Count 5.6 thou/uL (4.8-10.8)
[2019-12-02 06:27] LABS: Anion Gap 15 mmol/L (10-20); BUN (Urea Nitrogen) 19 mg/dL (8.4-25.7); Calc. Creatinine Clearance 64 mL/min (70-130); Calcium 8.2 mg/dL (7.8-10.44); Carbon Dioxide 23 mmol/L (23-31); Chloride 104 mmol/L (98-107); Estimated GFR-MDRD 54; Glucose 94 mg/dL (83-110); Magnesium 1.8 mg/dL (1.6-2.6); Potassium 3.6 mmol/L (3.5-5.1); Sodium 138 mmol/L (136-145)
[2019-12-02] MEDS: Furosemide 20 MG TAB PO SCH (07:41)
[2019-12-02] MEDS: Pantoprazole 40 MG VIAL IVP SCH ×2 (07:42→19:45)
[2019-12-02] MEDS: levETIRAcetam 500 MG TAB PO SCH (07:44)
--- NOTE | 2019-12-02 09:36 | PDOC.HOSPP ---
- Subjective Encounter Date: 12/02/19 Encounter Time: 09:35 Subjective: still having active rectal bleeding with clots - Objective Vital Signs & Weight: Vital Signs (12 hours) Temp Pulse Resp BP Pulse Ox 12/02/19 07:14 98.3 F 70 16 166/81 H 97 12/02/19 05:28 98 F 83 18 165/95 H 98 Weight Weight 247 lb I&O: 12/01/19 12/02/19 12/03/19 06:59 06:59 06:59 Intake Total 400 3110 Output Total 800 700 Balance -400 2410 Result Diagrams: 12/02/19 05:52 12/02/19 05:52 Hospitalist ROS - Medication Medications: Active Medications Generic Name Dose Route Start Last Admin Trade Name Freq PRN Reason Stop Dose Admin Atorvastatin Calcium 40 mg 11/30/19 21:00 12/01/19 20:19 Atorvastatin Calcium 40 Mg Tab PO 40 mg HS KHRIS Administration Clonidine 0.1 mg 11/30/19 15:39 12/01/19 08:08 Clonidine 0.1 Mg Tab PO 0.1 mg Q4H PRN Administration SBP Greater Than 180 Cyanocobalamin 1,000 mcg 11/30/19 21:00 12/01/19 20:19 Cyanocobalamin (Vitamin B-12) 1,000 Mcg Tab PO 1,000 mcg HS KHRIS Administration Folic Acid 1 mg 11/30/19 21:00 12/01/19 20:19 Folic Acid 1 Mg Tab PO 1 mg HS KHRIS Administration Furosemide 20 mg 12/01/19 09:00 12/02/19 07:41 Furosemide 20 Mg Tab PO 20 mg DAILY KHRIS Administration Levetiracetam 750 mg 12/01/19 09:00 12/02/19 07:44 Levetiracetam 500 Mg Tab PO 750 mg DAILY KHRIS Administration Metoprolol Succinate 100 mg 11/30/19 21:00 12/02/19 05:31 Metoprolol Succinate Xl 100 Mg Tab PO 100 mg BID KHRIS Administration Multivitamins 1 tab 11/30/19 21:00 12/01/19 20:20 Multivit, Therapeutic 1 Tab PO 1 tab HS KHRIS Administration Pantoprazole Sodium 40 mg 11/30/19 21:00 12/02/19 07:42 Pantoprazole 40 Mg Vial IVP 40 mg Q12HR KHRIS Administration Sodium Chloride 10 ml 11/30/19 14:00 12/01/19 20:21 Flush - Normal Saline 10 Ml Syringe IVF 10 ml PRN PRN Administration Saline Flush Tamsulosin HCl 0.4 mg 12/01/19 21:00 12/01/19 20:19 Tamsulosin Hcl 0.4 Mg Cap PO 0.4 mg HS KHRIS Administration - Exam General Appearance: awake alert Neck: no JVD Heart: no murmur, irregular Respiratory: CTAB Gastrointestinal: soft, non-distended, normal bowel sounds Extremities: no edema Hosp A/P (1) Acute blood loss anemia Code(s): D62 - ACUTE POSTHEMORRHAGIC ANEMIA Status: Acute (2) Chronic atrial fibrillation Code(s): I48.20 - CHRONIC ATRIAL FIBRILLATION, UNSPECIFIED Status: Acute (3) GI bleeding Code(s): K92.2 - GASTROINTESTINAL HEMORRHAGE, UNSPECIFIED Status: Acute Qualifiers: GI bleed type/associated pathology: anorectal hemorrhage Qualified Code(s): K62.5 - Hemorrhage of anus and rectum (4) CKD (chronic kidney disease) stage 3, GFR 30-59 ml/min Code(s): N18.3 - CHRONIC KIDNEY DISEASE, STAGE 3 (MODERATE) Status: Chronic (5) HLD (hyperlipidemia) Code(s): E78.5 - HYPERLIPIDEMIA, UNSPECIFIED Status: Chronic Qualifiers: Hyperlipidemia type: unspecified Qualified Code(s): E78.5 - Hyperlipidemia, unspecified (6) HTN (hypertension) Code(s): I10 - ESSENTIAL (PRIMARY) HYPERTENSION Status: Chronic Qualifiers: Hypertension type: essential hypertension Qualified Code(s): I10 - Essential (primary) hypertension (7) Seizure disorder Code(s): G40.909 - EPILEPSY, UNSP, NOT INTRACTABLE, WITHOUT STATUS EPILEPTICUS Status: Chronic - Plan Hg 8.9 this AM transfuse for Hg< 7. colonoscopy today hold anticoag review post endoscopy
[2019-12-02] MEDS ORDERED: PROPOFOL 200 MG/20 ML VIAL ONE (12:17)
[2019-12-02] MEDS ORDERED: Lidocaine 1% PF 5 ML VIAL ONE (12:17)
--- NOTE | 2019-12-02 12:18 | OP ---
DATE OF PROCEDURE: 12/02/2019 CRM SOLUTION ARCHITECT SURGEON: None. PROCEDURE PERFORMED: Colonoscopy with control of hemorrhage. INDICATIONS FOR PROCEDURE: 1. Hematochezia. 2. Anemia. 3. The patient has never undergone colonoscopy. MEDICATIONS: See Anesthesia record. FINDINGS: After discussion of the risks, benefits, and alternatives of the procedure, informed consent was obtained and witnessed. Pre-endoscopic cardiopulmonary examination was satisfactory. Time-out was performed before sedation was achieved. Sedation was achieved with Anesthesia assistance in the endoscopy unit. Digital rectal exam was performed, which was unremarkable. A Pentax adult colonoscope was inserted into the anus and passed forward to the cecum in the usual fashion. The cecal base was identified by the appendiceal orifice as well as the ileocecal valve. The terminal ileum was not intubated. There was liquid bloody effluent throughout the entirety of the colon. There were several blood clots, which were easily suctioned. Bowel preparation was fair, but I was able to get a pretty good examination of almost all of the entire colonic mucosa. I was unable to intubate the terminal ileum, but in the cecum fairly close to the appendiceal orifice, there was a medium-sized arteriovenous malformation with characteristic arborization. There was active hemorrhage from one area of this arteriovenous malformation. I treated the area with argon plasma coagulation with settings of 0.5 L/min and 15 [place]. Treatment was successful and good hemostasis was achieved. The colonoscope was then slowly withdrawn in a gradual circumferential manner with careful examination of the rest of the colonic mucosa. There were no other bleeding lesions visualized. No polyps or mass lesions seen. There was diverticulosis throughout the left side of the colon. Retroflexion in the rectum was unremarkable. The colonoscope was completely withdrawn and the patient allowed to recover. The patient tolerated the procedure well. There were no immediate postprocedure complications. IMPRESSION: 1. 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 Treated successfully with argon plasma coagulation, with good hemostasis achieved. 2. Bloody effluent throughout the colon, no other bleeding lesions visualized. 3. Left colon diverticulosis. RECOMMENDATION: 1. Advance diet. 2. Trend H and H tomorrow. 3. I would hold the patient's anticoagulation for 3 days if possible. Job ID: [id number]
--- NOTE | 2019-12-02 17:28 | PDOC.EVN ---
Event Note - Event Note Event Note: post endoscopy, AVM coagulated. bleeding controlled
[2019-12-02] MEDS: Tamsulosin HCl 0.4 MG CAP PO SCH (19:45)
[2019-12-02] MEDS: Atorvastatin Calcium 40 MG TAB PO SCH (19:45)
[2019-12-02] MEDS: Folic Acid 1 MG TAB PO SCH (19:45)
[2019-12-02] MEDS: Cyanocobalamin (Vitamin B-12) 1,000 MCG TAB PO SCH (19:45)
[2019-12-02] MEDS: Multivit, Therapeutic 1 TAB PO SCH (19:46)
[2019-12-02 22:01] LABS: Hemoglobin 8.5 g/dL (14.0-18.0); Mean Corpuscular HGB CONC 34.4 g/dL (32.0-36.0); Mean Corpuscular Hemoglobin 29.2 pg (27.0-31.0); Mean Corpuscular Volume 84.7 fL (78.0-98.0); Mean Platelet Volume 9.3 fL (7.4-10.4); Platelet Count 177 thou/uL (130-400); RBC Distribution Width 14.2 % (11.5-14.5); Red Blood Cell (RBC) Count 2.93 mill/uL (4.70-6.10); White Blood Cell (WBC) Count 6.2 thou/uL (4.8-10.8)
[2019-12-02 22:20] LABS: Band 1 % (5-11); Eosinophils 4 % (0-10); Lymphocytes 23 % (21-51); MDiff Complete? YES; Monocytes 15 % (0-10); Neutrophil 57 % (42-75); Platelet Morphology Comment Appears Adequate
[2019-12-03 06:12] LABS: Band 2 % (5-11); Eosinophils 2 % (0-10); Hemoglobin 9.4 g/dL (14.0-18.0); Lymphocytes 32 % (21-51); MDiff Complete? YES; Mean Corpuscular Hemoglobin 29.1 pg (27.0-31.0); Mean Corpuscular Volume 85.5 fL (78.0-98.0); Mean Platelet Volume 9.2 fL (7.4-10.4); Monocytes 14 % (0-10); Neutrophil 50 % (42-75); Platelet Count 191 thou/uL (130-400); Platelet Morphology Comment Appears Adequate; RBC Distribution Width 14.6 % (11.5-14.5); Red Blood Cell (RBC) Count 3.23 mill/uL (4.70-6.10)
[2019-12-03] MEDS: Pantoprazole 40 MG VIAL IVP SCH ×2 (08:20→19:56)
[2019-12-03] MEDS: Furosemide 20 MG TAB PO SCH (08:20)
[2019-12-03] MEDS: levETIRAcetam 500 MG TAB PO SCH ×2 (08:20→08:45)
--- NOTE | 2019-12-03 08:44 | PDOC.HOSPP ---
- Subjective Encounter Date: 12/03/19 Encounter Time: 08:33 Subjective: no further bleeding, no dizzziness, etc - Objective Vital Signs & Weight: Vital Signs (12 hours) Temp Pulse Resp BP BP BP Pulse Ox 12/03/19 07:00 98.4 F 90 16 135/83 156/87 H 163/82 H 96 Weight Weight 247 lb I&O: 12/02/19 12/03/19 12/04/19 06:59 06:59 06:59 Intake Total 3110 590 Output Total 700 400 Balance 2410 190 Result Diagrams: 12/03/19 05:23 12/02/19 05:52 Hospitalist ROS - Medication Medications: Active Medications Generic Name Dose Route Start Last Admin Trade Name Freq PRN Reason Stop Dose Admin Atorvastatin Calcium 40 mg 11/30/19 21:00 12/02/19 19:45 Atorvastatin Calcium 40 Mg Tab PO 40 mg HS KHRIS Administration Clonidine 0.1 mg 11/30/19 15:39 12/01/19 08:08 Clonidine 0.1 Mg Tab PO 0.1 mg Q4H PRN Administration SBP Greater Than 180 Cyanocobalamin 1,000 mcg 11/30/19 21:00 12/02/19 19:45 Cyanocobalamin (Vitamin B-12) 1,000 Mcg Tab PO 1,000 mcg HS KHRIS Administration Folic Acid 1 mg 11/30/19 21:00 12/02/19 19:45 Folic Acid 1 Mg Tab PO 1 mg HS KHRIS Administration Furosemide 20 mg 12/01/19 09:00 12/03/19 08:20 Furosemide 20 Mg Tab PO 20 mg DAILY KHRIS Administration Levetiracetam 750 mg 12/01/19 09:00 12/03/19 08:20 Levetiracetam 500 Mg Tab PO 750 mg DAILY KHRIS Administration Metoprolol Succinate 100 mg 11/30/19 21:00 12/03/19 08:19 Metoprolol Succinate Xl 100 Mg Tab PO 100 mg BID KHRIS Administration Multivitamins 1 tab 11/30/19 21:00 12/02/19 19:46 Multivit, Therapeutic 1 Tab PO 1 tab HS KHRIS Administration Pantoprazole Sodium 40 mg 11/30/19 21:00 12/03/19 08:20 Pantoprazole 40 Mg Vial IVP 40 mg Q12HR KHRIS Administration Sodium Chloride 10 ml 11/30/19 14:00 12/01/19 20:21 Flush - Normal Saline 10 Ml Syringe IVF 10 ml PRN PRN Administration Saline Flush Tamsulosin HCl 0.4 mg 12/01/19 21:00 12/02/19 19:45 Tamsulosin Hcl 0.4 Mg Cap PO 0.4 mg HS KHRIS Administration - Exam General Appearance: awake alert Neck: no JVD Heart: no murmur, irregular Respiratory: CTAB Gastrointestinal: soft, normal bowel sounds Extremities: no edema Hosp A/P (1) Acute blood loss anemia Code(s): D62 - ACUTE POSTHEMORRHAGIC ANEMIA Status: Acute (2) Chronic atrial fibrillation Code(s): I48.20 - CHRONIC ATRIAL FIBRILLATION, UNSPECIFIED Status: Acute (3) GI bleeding Code(s): K92.2 - GASTROINTESTINAL HEMORRHAGE, UNSPECIFIED Status: Acute Qualifiers: GI bleed type/associated pathology: anorectal hemorrhage Qualified Code(s): K62.5 - Hemorrhage of anus and rectum (4) CKD (chronic kidney disease) stage 3, GFR 30-59 ml/min Code(s): N18.3 - CHRONIC KIDNEY DISEASE, STAGE 3 (MODERATE) Status: Chronic (5) HLD (hyperlipidemia) Code(s): E78.5 - HYPERLIPIDEMIA, UNSPECIFIED Status: Chronic Qualifiers: Hyperlipidemia type: unspecified Qualified Code(s): E78.5 - Hyperlipidemia, unspecified (6) HTN (hypertension) Code(s): I10 - ESSENTIAL (PRIMARY) HYPERTENSION Status: Chronic Qualifiers: Hypertension type: essential hypertension Qualified Code(s): I10 - Essential (primary) hypertension (7) Seizure disorder Code(s): G40.909 - EPILEPSY, UNSP, NOT INTRACTABLE, WITHOUT STATUS EPILEPTICUS Status: Chronic - Plan post colonoscopy- AVM coagulation BP elevated, reinstitute BP meds hold eliqis 2 more days possible DC in am if no blleding aand Hg stable
[2019-12-03] MEDS ORDERED: LEVETIRACETAM 750 MG PO SCH (09:00)
[2019-12-03] MEDS: Atorvastatin Calcium 40 MG TAB PO SCH ×2 (09:03→19:56)
[2019-12-03 13:55] LABS: #Eosinphils 0.1 thou/uL (0.0-0.7); #Lymphocytes 1.9 thou/uL (1.20-3.40); #Neutrophils 3.8 thou/uL (1.40-6.50); %Basophils 0.7 % (0.0-1.0); %Eosinophils 1.4 % (0.0-10.0); %Lymphocytes 27.4 % (21.0-51.0); %Monocytes 14.3 % (0.0-10.0); %Neutrophils 56.2 % (42.0-75.0); Hemoglobin 8.9 g/dL (14.0-18.0); Mean Corpuscular Hemoglobin 28.9 pg (27.0-31.0); Mean Platelet Volume 9.4 fL (7.4-10.4); Platelet Count 190 thou/uL (130-400); RBC Distribution Width 14.8 % (11.5-14.5); Red Blood Cell (RBC) Count 3.08 mill/uL (4.70-6.10); White Blood Cell (WBC) Count 6.8 thou/uL (4.8-10.8)
[2019-12-03] MEDS: Cyanocobalamin (Vitamin B-12) 1,000 MCG TAB PO SCH (19:56)
[2019-12-03] MEDS: Tamsulosin HCl 0.4 MG CAP PO SCH (19:56)
[2019-12-03] MEDS: Folic Acid 1 MG TAB PO SCH (19:56)
[2019-12-03] MEDS: Multivit, Therapeutic 1 TAB PO SCH (19:56)
--- NOTE | 2019-12-03 20:48 | PRG ---
DATE OF SERVICE: 12/03/2019 REASON FOR CONSULTATION: Hematochezia, now status post colonoscopy with argon plasma coagulation. SUBJECTIVE: Overnight, the patient did not have any problems or complaints, and during the course of the day today, the patient did not have any additional bowel movements, bloody or otherwise. Currently, he states that he is doing well without problems or complaints. He currently denies any nausea, vomiting, fevers, chills, hematemesis, melena, hematochezia, or abdominal pain. OBJECTIVE: VITAL SIGNS: Temperature 98.2, pulse 88, blood pressure 153/90, respiratory rate 18, saturating 95% on room air. GENERAL: The patient was lying in bed, in no acute distress. Alert and oriented x4. CARDIOVASCULAR: Regular rate and rhythm. RESPIRATORY: Clear to auscultation bilaterally. ABDOMEN: Normoactive bowel sounds. Soft, nontender, and nondistended. EXTREMITIES: No cyanosis, clubbing, or edema. LABORATORY DATA: CBC with a white blood cell count of 6.8, hemoglobin 8.9, hematocrit 26.2, platelets 190. IMAGING DATA: The patient underwent colonoscopy on December 02, 2019, with fair colonic preparation seen during the exam, but with adequate visualization of the colonic mucosa. Within the cecum, a medium-sized arteriovenous malformation was seen with active hemorrhage from one area of this AVM. It was successfully treated with argon plasma coagulation with good hemostasis achieved. Diverticulosis was noted throughout the left side of the colon, but no active bleeding or areas of diverticulitis were seen. ASSESSMENT AND PLAN: The patient is a 79-year-old male with past medical history of obesity; hypertension; hyperlipidemia; benign prostatic hypertrophy; cardiac arrhythmia, status post pacemaker implant; and cerebrovascular accident with residual expressive aphasia, presenting with hematochezia secondary to cecal arteriovenous malformation. Hematochezia/cecal arteriovenous malformation: The patient initially presented with complaints of hematochezia characterized as bright red blood per rectum in addition to a significant anemia noted on admission. He subsequently underwent a colonoscopy on December 02, 2019, with the finding of a medium-sized arteriovenous malformation located within the cecum, that did display active bleeding. This was subsequently intervened upon with argon plasma coagulation with good hemostasis achieved with cautery. In the postoperative setting, the patient has not had any further episodes of hematochezia nor has he had a decrease in his H and H indicative of no current bleeding. RECOMMENDATIONS: 1. We would continue to trend his H and H and transfuse as necessary to maintain an H and H of 09/30. 2. Continue to monitor clinically for signs of active GI bleeding. 3. We would continue to hold his anticoagulation for approximately the next 24 hours, then restart if clinically appropriate. 4. Advance diet as tolerated. We will sign off at this time given stabilization of his H and H and lack of clinical evidence of bleeding. Please call with any additional questions. Job ID: [id number]
[2019-12-04 07:34] VITALS: TEMP 98.7
[2019-12-04 07:36] VITALS: BP 147/80
[2019-12-04 09:06] LABS: Hemoglobin 9.5 g/dL (14.0-18.0); Mean Corpuscular HGB CONC 34.1 g/dL (32.0-36.0); Mean Corpuscular Hemoglobin 29.4 pg (27.0-31.0); Mean Corpuscular Volume 86.2 fL (78.0-98.0); Platelet Count 194 thou/uL (130-400); RBC Distribution Width 15.7 % (11.5-14.5); Red Blood Cell (RBC) Count 3.24 mill/uL (4.70-6.10); White Blood Cell (WBC) Count 6.5 thou/uL (4.8-10.8)
[2019-12-04] MEDS: levETIRAcetam 500 MG TAB PO SCH (09:29)
[2019-12-04] MEDS: Atorvastatin Calcium 40 MG TAB PO SCH (09:29)
[2019-12-04] MEDS: Furosemide 20 MG TAB PO SCH (09:29)
[2019-12-04] MEDS: Pantoprazole 40 MG VIAL IVP SCH (09:30)
[2019-12-04 09:43] LABS: Band 3 % (5-11); Eosinophils 2 % (0-10); Hypochromia SLIGHT = 6-15 cells (100X) (0-5/hpf); Lymphocytes 26 % (21-51); MDiff Complete? YES; Monocytes 15 % (0-10); Neutrophil 54 % (42-75); Platelet Morphology Comment Appears Adequate; Polychromasia SLIGHT = 2-3 cells (100X) (0-2/hpf); Target Cells SLIGHT = 2-5 cells (100X) (0-1/hpf)
--- NOTE | 2019-12-04 10:13 | DIS ---
DATE OF ADMISSION: 11/30/2019 DATE OF DISCHARGE: 12/04/2019 PRIMARY CARE PROVIDER: Dr. Obie Painting. DISPOSITION: Discharged home. FINAL DIAGNOSES: Lower gastrointestinal bleeding; acute posthemorrhagic anemia; colonic arteriovenous malformation; essential hypertension; chronic atrial fibrillation; chronic anticoagulation on Eliquis; chronic kidney disease, stage 3; hypertension; seizure disorder. DISCHARGE MEDICATIONS: 1. Levitracetam 750 mg daily. 2. Flomax 0.4 mg daily. 3. Metoprolol 200 mg a day. 4. Lasix 20 mg twice a day. 5. Lipitor 40 mg a day. 6. Eliquis 5 mg twice a day, to start tomorrow. 7. Protonix 40 mg a day. ALLERGIES: NO KNOWN ALLERGIES. CODE STATUS: Full. PENDING AT THE TIME OF DISCHARGE: Nothing. DIET: Heart healthy. HOSPITAL COURSE: The patient admitted to the hospital with significant bleeding, red blood plus clots from his rectum. He was noted initially to have a hemoglobin of 9.6, white count 5.2, platelet count 181,000. His INR was elevated at 1.8, he was on Eliquis. The Eliquis was held. Electrolytes were balanced. Creatinine was 1.5. COVID was negative. The patient was seen in consultation by Dr. Laurel Hoover, had the endoscopy on 12/02/2019, after his Eliquis had been held. His operative note on 12/02/2019, revealed medium-sized cecal arteriovenous malformation with active bleeding. Argon plasma coagulation, good hemostasis. His blood counts were followed. He did not require transfusion. He is doing well at this time. He is being discharged on medicines as noted. To follow up with PCP in 3 days. CONSULTATION: Gastroenterology, Dr. Laurel Hoover. PROCEDURE: Colonoscopy with argon laser coagulation of AVM. The patient's status at the time of discharge, vital signs stable, cardiorespiratory exam normal. Job ID: [id number] [facility]
== END 2019-12-04 12:04 | disposition home or self-care (01) | DRG 378 ==
LOC: ERS 12:25 → T4-B 13:56
PROVIDERS: ADMIT Internal Medicine; ATTEND Internal Medicine
PROC: 0W3P8ZZ Control Bleeding in Gastrointestinal Tract, Via Natural or Artificial Opening Endoscopic (ICD-10-PCS; principal; 2019-12-02)
DX: K55.21 Angiodysplasia of colon with hemorrhage (principal); D62 Acute posthemorrhagic anemia; I48.20 Chronic atrial fibrillation, unspecified; I12.9 Hypertensive chronic kidney disease with stage 1 through stage 4 chronic kidney disease, or unspecified chronic kidney disease; N18.3 Chronic kidney disease, stage 3 (moderate); G40.909 Epilepsy, unspecified, not intractable, without status epilepticus; Z20.828 Contact with and (suspected) exposure to other viral communicable diseases; E78.00 Pure hypercholesterolemia, unspecified; E78.5 Hyperlipidemia, unspecified; N40.0 Benign prostatic hyperplasia without lower urinary tract symptoms; I25.10 Atherosclerotic heart disease of native coronary artery without angina pectoris; E66.9 Obesity, unspecified; Z79.01 Long term (current) use of anticoagulants; Z95.0 Presence of cardiac pacemaker; Z79.899 Other long term (current) drug therapy; Z87.891 Personal history of nicotine dependence; I69.920 Aphasia following unspecified cerebrovascular disease; Z68.31 Body mass index [BMI] 31.0-31.9, adult
CPT/HCPCS: 36415; 80048; 80053; 82728; 83540; 83550; 83735; 85025; 85610; 85730; 86850; 86900; 86901; 87635; 99285; C9113; J2704; J2916; J3475; J3490; U0003

== ENCOUNTER 2019-12-20 23:41 | Inpatient (IN) | payer MEDICARE, OTHER ==
--- NOTE | 2019-12-20 23:55 | CT ---
CT Brain WO Con History: Altered mental status Comparison: None. Findings: Extensive microvascular ischemic changes. 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 Left FIGURE SKATER ence phalomalacia. No acute hemorrhage. Patient is rotated in the gantry. Paranasal sinuses and mastoids are clear. Senile calcifications of the basal ganglia and left externa l capsule. Impression: Extensive chronic findings. No definite acute territorial infarction.
[2019-12-21 00:07] LABS: #Basophils 0.1 thou/uL (0.0-0.2); #Eosinphils 0.2 thou/uL (0.0-0.7); #Lymphocytes 2.9 thou/uL (1.20-3.40); #Monocytes 0.7 thou/uL (0.11-0.59); #Neutrophils 4.2 thou/uL (1.40-6.50); %Basophils 0.7 % (0.0-1.0); %Eosinophils 2.2 % (0.0-10.0); %Lymphocytes 36.3 % (21.0-51.0); %Monocytes 8.6 % (0.0-10.0); %Neutrophils 52.3 % (42.0-75.0); Hemoglobin 10.4 g/dL (14.0-18.0); Mean Corpuscular HGB CONC 33.8 g/dL (32.0-36.0); Mean Corpuscular Hemoglobin 28.1 pg (27.0-31.0); Mean Corpuscular Volume 83.2 fL (78.0-98.0); Mean Platelet Volume 9.3 fL (7.4-10.4); Platelet Count 203 thou/uL (130-400); RBC Distribution Width 15.8 % (11.5-14.5); Red Blood Cell (RBC) Count 3.71 mill/uL (4.70-6.10)
[2019-12-21 00:08] LABS: INR-International Normal Ratio 1.1; PTT 31.8 sec (22.9-36.1); Prothrombin Time 14.2 sec (12.0-14.7)
[2019-12-21 00:15] LABS: ALT (SGPT) 18 U/L (8-55); AST (SGOT) 24 U/L (5-34); Albumin 3.5 g/dL (3.4-4.8); Alkaline Phosphatase 133 U/L (40-110); Anion Gap 17 mmol/L (10-20); BUN (Urea Nitrogen) 15 mg/dL (8.4-25.7); Bilirubin, Total 0.5 mg/dL (0.2-1.2); CK (CPK) 83 U/L (30-200); Calc. Creatinine Clearance 0 mL/min (70-130); Calcium 8.8 mg/dL (7.8-10.44); Carbon Dioxide 20 mmol/L (23-31); Chloride 105 mmol/L (98-107); Estimated GFR-MDRD 51; Globulin 4.8 g/dL (2.4-3.5); Glucose 144 mg/dL (83-110); Potassium 3.7 mmol/L (3.5-5.1); Protein, Total 8.3 g/dL (5.8-8.1); Sodium 138 mmol/L (136-145)
[2019-12-21] MEDS ORDERED: Lorazepam 2 MG/ML VIAL ONE ×2 (01:13→03:24)
[2019-12-21 01:41] LABS: Bilirubin Negative (Negative); Blood, Urine Trace (Negative); Clarity Turbid (Clear); Glucose, Urine (Dipstick) Normal (Negative); Ketone, Urine Negative (Negative); Leukocyte 500 Leu/uL (Negative); Nitrite Negative (Negative); Protein, Urine (Dipstick) 100 mg/dL (Neg-Trace); Squamous Epithelial 0-3 HPF (0-3); Urobilinogen Normal mg/dL (Less than 2); WBC/HPF Greater than 50 HPF (0-3)
[2019-12-21 01:47] LABS: Amphetamine Not Detected (NotDetected); Bacteria/HPF 1+ HPF (None Seen); Barbiturates Screen Not Detected (NotDetected); Benzodiazepine Screen Not Detected (NotDetected); Cocaine Metabolite Screen Not Detected (NotDetected); Medtox Control Line Valid? VALID (VALID); Medtox Reader # READER 4; Methadone Not Detected (NotDetected); Methamphetamine Not Detected (NotDetected); Opiate Screen Not Detected (NotDetected); Oxycodone Screen Not Detected (NotDetected); Phencyclidine (PCP) Not Detected (NotDetected); THC/Cannabinoid Screen Not Detected (NotDetected); Tricyclic Screen Detected (NotDetected)
[2019-12-21 01:51] LABS: Acetaminophen Less than 6.0 mcg/mL (10.0-30.0); Alcohol Less than 10 mg/dL (Less than 10); Salicylate Less than 8.0 mg/dL (15.0-30.0)
[2019-12-21] MEDS ORDERED: Lorazepam 2 MG/ML VIAL SLOW IVP PRN (02:37)
--- NOTE | 2019-12-21 03:06 | PDOC.HHP ---
Hospitalist HPI - History of Present Illness Altered mental status History of Present Illness: Patient is a 79 year old male with PMH CVA w/ L sided deficits 2013, HTN, HLD, atrial fibrillation, pacemaker who presents to ED for altered mental status, R facial droop. Per , patient has been confused today, he developed R favoring gaze and a L head tilt which is unusual for him. He was less able to ambulate than at baseline as well. Patient required more help w/ ambulation than at baseline as well. Patient has some baseline neuro deficits and communication difficulties, he has a history of stroke and is also on eliquis for atrial fibrillation. In ED, patient noted to be aphasix, unsteady gait, L sided weakness noted in arm and leg, R sided facial droop, NIHSS 28, stroke alert performed, CT head with extensive chronic findings, no definite infarction. CTA head preliminary report concerning for vertebral artery occlusion, ED physician discussed with Dr Sylvester who did not believe intervention was warranted at this time. Patient to be admitted for stroke workup. He is agitated and required ativan and was temporarily restrained w/ hand restraints due to unsafe efforts to remove lines and equipment. Vitals with severe HTN 230s/120s on arrival but now 140s/90s with no HTN medications given. UA positive for UTI. UDS positive for tricyclics. Hospitalist ROS - Review of Systems ROS unobtainable: due to mental status - Medication Medications: metoprolol succinate MonDec 20, 2019 23:47 FRANCESCA Cannon Daniel TABLET, EXTENDED RELEASE 24 HR : Strength - 50 mg : ORAL Patient Dose: 200 mg once a day (in the morning). levETIRAcetam oral MonDec 20, 2019 23:47 FRANCESCA Cannon Daniel tablet : Strength - 750 mg : ORAL Patient Dose: 1 tab(s) Oral once a day. Eliquis Sat Dec 21, 2019 01:50 FRANCESCA Cannon Daniel TABLET : Strength - 2.5 mg : ORAL Patient Dose: 5 mg 2 times a day. lisinopril Sat Dec 21, 2019 01:50 FRANCESCA Cannon Daniel TABLET : Strength - 20 mg : ORAL Patient Dose: 40 mg once a day. atorvastatin Sat Dec 21, 2019 01:50 FRANCESCA Cannon Daniel TABLET : Strength - 20 mg : ORAL Patient Dose: 40 mg once a day. cloNIDine HCl Sat Dec 21, 2019 01:50 FRANCESCA Cannon Daniel TABLET : Strength - 0.1 mg : ORAL Patient Dose: 0.2 mg 3 times a day. furosemide oral Sat Dec 21, 2019 01:50 FRANCESCA Cannon Daniel TABLET : Strength - 40 mg : ORAL Patient Dose: 1 tab(s) once a day. Hospitalist History - Past Medical History Musculoskeletal: reports: Osteoarthritis Other Medical History: CVA w/ L sided deficits 2013, HTN, HLD, atrial fibrillation, pacemaker - Past Surgical History Past Surgical History: reports: Other (Pacemaker placement) Other Surgical History: pacemaker - Family History Family History: reports: no pertinent history - Social History Smoking Status: Never smoker Alcohol: reports: None Drugs: reports: none - Exam General - other findings: nonverbal/aphasic/encephalopathic, agitated, no distress Eye: PERRL, anicteric sclera ENT: normocephalic atraumatic, no oropharyngeal lesions, moist mucosa ENT - other findings: R facial droop Neck: supple, symmetric, no JVD, no thyromegaly, no lymphadenopathy, no carotid bruit Heart: RRR, no murmur, no gallops, no rubs, normal peripheral pulses Respiratory: CTAB, no wheezes, no rales, no ronchi, normal chest expansion, no tachypnea, normal percussion Gastrointestinal: soft, non-tender, non-distended, normal bowel sounds, no palpable masses, no hepatomegaly, no splenomegaly, no bruit Extremities: no cyanosis, no clubbing, no edema Skin: normal turgor, no lesions, no rashes Neurological: facial droop (R sided) Neurological - other findings: L weakness of arm and leg, aphasia Musculoskeletal: generalized weakness Psychiatric - other findings: unable to evaluate Hospitalist Results - Labs Result Diagrams: 12/20/19 23:53 12/20/19 23:53 Lab results: WBC 8.0 thou/uL (4.8-10.8) 12/20/19 23:53 Hgb 10.4 g/dL (14.0-18.0) L 12/20/19 23:53 Hct 30.9 % (42.0-52.0) L 12/20/19 23:53 MCV 83.2 fL (78.0-98.0) 12/20/19 23:53 Plt Count 203 thou/uL (130-400) 12/20/19 23:53 Neutrophils % 52.3 % (42.0-75.0) 12/20/19 23:53 Sodium 138 mmol/L (136-145) 12/20/19 23:53 Potassium 3.7 mmol/L (3.5-5.1) 12/20/19 23:53 Chloride 105 mmol/L (98-107) 12/20/19 23:53 Carbon Dioxide 20 mmol/L (23-31) L 12/20/19 23:53 BUN 15 mg/dL (8.4-25.7) 12/20/19 23:53 Creatinine 1.60 mg/dL (0.7-1.3) H 12/20/19 23:53 Glucose 144 mg/dL (83-110) H 12/20/19 23:53 Calcium 8.8 mg/dL (7.8-10.44) 12/20/19 23:53 Total Bilirubin 0.5 mg/dL (0.2-1.2) 12/20/19 23:53 AST 24 U/L (5-34) 12/20/19 23:53 ALT 18 U/L (8-55) 12/20/19 23:53 Alkaline Phosphatase 133 U/L (40-110) H 12/20/19 23:53 Creatine Kinase 83 U/L (30-200) 12/20/19 23:53 Troponin I 0.011 ng/mL (< 0.028) 12/20/19 23:53 Serum Total Protein 8.3 g/dL (5.8-8.1) H 12/20/19 23:53 Albumin 3.5 g/dL (3.4-4.8) 12/20/19 23:53 Urine Ketones Negative mg/dL (Negative) 12/21/19 01:25 Urine Blood Trace (Negative) A 12/21/19 01:25 Urine Nitrite Negative (Negative) 12/21/19 01:25 Ur Leukocyte Esterase 500 Jesus/uL (Negative) A 12/21/19 01:25 Urine RBC 4-6 HPF (0-3) A 12/21/19 01:25 Urine WBC Greater than 50 HPF (0-3) A 12/21/19 01:25 Ur Squamous Epith Cells 0-3 HPF (0-3) 12/21/19 01:25 Urine Bacteria 1+ HPF (None Seen) A 12/21/19 01:25 Additional comment: VITAL SIGNS Sat Dec 21, 2019 02:38 FRANCESCA Cannon Eladio BP: 146/90 Pulse: 100 Resp: 20 Temp: 98.0 (Oral) Pain: UTO O2 sat: 94 on (Room Air) Time: 12/21/2019 02:38. labs, imaging reports, ED documents, EKG personally reviewed - EKG Interpretation EKG: atrial fibrillation 107 beats per minute, no acute ST changes, no avb, QTC 461 Hospitalist H&P A/P - Plan Plan: Patient is a 79 year old male with PMH CVA w/ L sided deficits 2013, HTN, HLD, atrial fibrillation, pacemaker who presents to ED for altered mental status, R facial droop. # aphasia, R facial droop concerning for acute stroke # vertebral artery occlusion on preliminary CTA head report concerned for confusion, R favoring gaze, L head tilt, brought to ED where patient found to be aphasic, unsteady gait, L sided weakness (chronic), R sided facial droop, NIHSS 28. Patient has some baseline neuro deficits and communication difficulties, he has a history of stroke w/ residual L sided wea kness and is also on eliquis for atrial fibrillation. CTA head preliminary report concerning for vertebral artery occlusion, ED physician discussed with Dr Sylvester who did not believe intervention was warranted at this time. UA positive for UTI. UDS positive for tricyclics. Patient to be admitted for stroke workup. - admit to stroke unit, monitoring coordinator - unable to order MRI due to pacemaker - follow up final read of CTA which is not yet in chart - continue eliquis/atorvastatin as well as keppra - consult neurology -not on ASA, will hold for now as he has recent lower GI bleed due to AVM in se ptember # HTN urgency - HTN 230s/120s on arrival but now 140s/90s with no HTN medications given, will require permissive HTN for now for stroke, PRN medications per stroke order set - hold metoprolol/lasix, resume after permissive HTN # UTI # suspected metabolic encephalopathy would not be surprised if some part of current state was due to UTI and encephalopathy - urine culture - ceftriaxone - continue flomax # agitation - suspect due to encephalopathy, continue PRN ativan and treat UTI as above # HLD # atrial fibrillation w/ pacemaker - resume home meds as appropriate once med rec complete # DVT ppx - eliquis # GI ppx - PPI
[2019-12-21] MEDS ORDERED: cefTRIAXone\\ROCEPHIN 1 GM in Sodium Chloride 0.9% 100 ML IVPB SCH ×2 (04:00→21:00)
[2019-12-21 05:02] VITALS: BMI 31.6
[2019-12-21] MEDS ORDERED: Pantoprazole 40 MG GRANULES PACKET PO SCH (09:00)
[2019-12-21] MEDS ORDERED: FLU VACC QS2020-21(65YR UP)/PF 240 MCG/0.7 ML SYRINGE IM ONE (09:00)
[2019-12-21] MEDS ORDERED: Tamsulosin HCl 0.4 MG CAP PO SCH (09:00)
[2019-12-21] MEDS ORDERED: levETIRAcetam 500 mg/5 ml Oral Solution PO SCH (09:00)
[2019-12-21] MEDS ORDERED: Apixaban 2.5 MG TAB PO SCH (09:00)
--- NOTE | 2019-12-21 09:24 | CT ---
PRELIMINARY REPORT/[facility]/EMERGENCY AFTER HOURS PROCEDURE This report was discussed with ESTEFANI CHUA MD by Wong Velazco DO on Dec 21, 2019 01:23:00 CDT. Addendum electronically signed by Sahil Narvaez on December 21, 2019 1:23:44 AM CDT EXAM: CTA Head and Neck with Intravenous Contrast. CLINICAL HISTORY: Level 1 stroke alert with r facial droop, ams, and slurred speech. previous l sided stroke. TECHNIQUE: Axial CTA images of the head and neck performed with intravenous contrast. Two-dimensional MIP and/or three-dimensional MIP and volume rendered reformations were performed. Note: Per PQRS, the description of internal carotid artery percent stenosis, including 0 percent or n ormal exam, is based on [place] Symptomatic Carotid Endarterectomy Trial (NASCET) criteria. CONTRAST: With; ISOVUE 370,100mL COMPARISON: CT\SR - CT BRAIN WO CON - 12/20/2019 11:45 PM CDT FINDINGS: Patient motion artifact limits detailed evaluation. CTA NECK: COMMON CAROTID ARTERIES No significant stenosis. No dissection or occlusion. INTERNAL CAROTID ARTERIES No stenosis by NASCET criteria. No dissection or occlusion. VERTEBRAL ARTERIES Loss of opacification of the right proximal vertebral artery with re-opacification in the proximal V2 segment, axial series 7, image 95. The right vertebral artery likely terminates as the PICA. CTA HEAD: ANTERIOR CEREBRAL ARTERIES No significant stenosis. No occlusion. No aneurysm. MIDDLE CEREBRAL ARTERIES No significant stenosis. No occlusion. No aneurysm. POSTERIOR CEREBRAL ARTERIES No significant stenosis. No occlusion. No aneurysm. BASILAR ARTERY No significant stenosis. No occlusion. No aneurysm. OTHER: SOFT TISSUES No acute finding. No masses or lymphadenopathy. BONES No acute osseous abnormality. IMPRESSION: 1. Patient motion somewhat limits detailed evaluation. 2. Loss of opacification/high grade stenosis involving the V1 segment of the right vertebral artery with re-opacification of the vessel on axial series 7, image 95. 3. The right vertebral artery likely terminates as the PICA, a normal variant. 4. Sequela of chronic small vessel ischemic disease. If there is concern for infarct recommend MRI. ELECTRONICALLY SIGNED BY: Wong Velazco DO Dec 21, 2019 1:17:52 AM CDT This report is intended for review by the ordering physician only, in accordance of law. If you recei ve this report in error, please call [facility] at [phone]. FINAL REPORT Final report by Dr. Vásquez Emergency after-hours study CT ANGIOGRAM NECK WITH CONTRAST CT ANGIOGRAM BRAIN WITH CONTRAST: DATE: 12/21/2019 1:00 AM HISTORY: 79-year-old male with acute stroke symptoms: Right facial droop, dysarthria, and altered mental statu s. TECHNIQUE: After IV contrast injection, arterial bolus chasing technique scan performed from top of aortic arch to vertex of head. Coronal and sagittal 3-D MIP reconstructions. FINDINGS: Disagreement with preliminary report by [facility]. Left M2 segment clot is present. Not mentioned by [facility]. Dr. Vásquez notified ER charge nurse Allison Moise of this at 9:21 AM 12/21/2019. IMPRESSION: 1) M2 segment acute thrombus extending into its proximal branches of left middle cerebral artery. 2) not mentioned in the preliminary report by [facility], there are somewhat severe heterogeneo us groundglass and mosaic infiltrates at the bilateral lung apices, in addition to numerous small bullae. 3) occlusion of proximal third of right vertebral artery. Reconstitution of distal two-thirds of righ t vertebral artery. Transcribed Date/Time: 12/21/2019 9:34 AM
--- NOTE | 2019-12-21 10:47 | PDOC.HOSPP ---
- Subjective Subjective: Patient was seen examined at bedside. This is a unfortunate 79 years old -English gentleman who was admitted earlier this morning around 2:30AM for possible CVA. He has significant past medical histories of CVA with residual left-sided deficit in 2013, and many other comorbidities. Patient was brought to the ED with worsening confusion, and developed right favoring gaze. In the ED he was noted to have right facial droop, his NIH stroke scale was 28. Preliminary of the stat CTA of the head and neck, show right vertebral occlusion. Apparently ED physicians discussed with Dr. Sylvester last night. No surgical intervention. However, I was notified by nursing staff, our radiologist, Dr. Vásquez, who review the initial CTA, and found that there is acute thrombus at the M2 segment extending into the proximal of the left MCA, that was not mentioned in the initial preliminary report. I discussed the case again with Dr. Sylvester, with regard to the new findings on the CTA at 10 AM, when I was notified by nursing staff. He reviewed imaging, and stated that is too far out intervention. Recommend medical management. Patient was seen examined at bedside with nursing staff. Patient was given some Ativan in the ED for agitation. He is hypersomnolent, and also requires soft restraint - Objective Vital Signs & Weight: Vital Signs (12 hours) Temp Pulse Resp BP BP Pulse Ox 12/21/19 08:05 97.6 F 80 14 195/99 H 100 12/21/19 05:10 98 12/21/19 04:20 98.3 F 58 L 16 210/111 H 98 Weight Weight 253 lb 1.6 oz Result Diagrams: 12/20/19 23:53 12/20/19 23:53 Additional Labs: Accuchecks 12/20/19 23:56 POC Glucose 132 H Radiology Reviewed by me: Yes EKG Reviewed by me: Yes Hospitalist ROS - Medication Medications: Active Medications Generic Name Dose Route Start Last Admin Trade Name Freq PRN Reason Stop Dose Admin Apixaban 5 mg 12/21/19 09:00 12/21/19 09:33 Apixaban 2.5 Mg Tab PO Not Given BID KHRIS Levetiracetam 750 mg 12/21/19 09:00 12/21/19 09:33 Levetiracetam 500 Mg/5 Ml Oral Solution PO Not Given DAILY KHRIS Pantoprazole Sodium 40 mg 12/21/19 09:00 12/21/19 09:34 Pantoprazole 40 Mg Granules Packet PO Not Given DAILY KHRIS Tamsulosin HCl 0.4 mg 12/21/19 09:00 12/21/19 09:34 Tamsulosin Hcl 0.4 Mg Cap PO Not Given DAILY KHRIS - Exam General - other findings: somnolent Eye: PERRL ENT: normocephalic atraumatic Neck: supple Heart: RRR, no murmur Respiratory: CTAB, no wheezes Gastrointestinal: soft, non-tender Extremities: no cyanosis, no clubbing Neurological - other findings: Pt is hypersomnolent, arousable but not follow commmands Hosp A/P - Plan Patient is a 79 year old male with PMH CVA w/ L sided deficits 2013, HTN, HLD, atrial fibrillation, pacemaker who presents to ED for altered mental status, R facial droop. Acute CVA in setting of hx of CVA --CTA showed acute thrombus at M2 segment extending into prox branches of left MCA. D/w interventional neuroradiologist, Dr. Sylvester, no surgical intervention. --cont med mgt, and stroke workup --allow permissive htn. cont Eliquis/Statin --Neurology consult. PT/OT/SP eval. Cont neurocheck q4h Acute Toxic Encephalopathy -likely combination of medication side effects and in setting of acute CVA, and UTI --Continue supportive cares, avoid further sedative medications Hypertensive urgency - blood pressure has improved --We will allow permissive hypertension UTI --Continue Rocephin, follow urine culture Dyslipidemia --cont statin, follow fasting lipid panel in a.m. PAF with hx of PPM --cont Eliquis Hx of CVA with residual left side weakness --mgt as above Groundglass and mosaic infiltrate at bilateral lungs apices noted on CTA --check CXR, follow Covid PCR. No fever. DVT ppx: Pt is on Eliquis GI ppx - PPI
--- NOTE | 2019-12-21 11:01 | CON ---
DATE OF CONSULTATION: 12/21/2019 CONSULTING PHYSICIAN: Hospitalist Services. IMPRESSION: 1. Left MCA stroke with aphasia and facial droop. 2. Prior stroke with some mild left-sided weakness. PLAN: 1. Add aspirin 325 mg rectally. 2. Continue full-dose Lovenox until his Eliquis can be restarted. 3. Repeat CT scan of the brain tomorrow. HISTORY OF PRESENT ILLNESS: Mr. Nevarez is a 79-year-old man who lives at home with his . He apparently lost his ability to speak. He was brought into the emergency room last night. Initial CT of the brain did not show any acute ischemic change or hemorrhage. His CT angiogram showed a right vertebral occlusion and later was noted to document a left MCA clot. Dr. Sylvester was consulted and reported that the lesions were not amenable to any procedure. He reportedly was compliant with medication prior to admission. He has been hypertensive since admission with blood pressures over 200 and 100 diastolic. He got some Ativan in the emergency room and he has remained a bit lethargic. LABORATORY STUDIES: Reviewed. PAST MEDICAL HISTORY: 1. Atrial fibrillation. 2. Hypertension. 3. Pacemaker implantation. 4. Stroke. ALLERGIES: NONE REPORTED. SOCIAL HISTORY: Lives at home with his . He has no reported tobacco or alcohol use. FAMILY HISTORY: Not obtainable. REVIEW OF SYSTEMS: 10-system review of systems was not obtainable due to his aphasia. PHYSICAL EXAMINATION: GENERAL: He is a well-nourished elderly man, lying in bed, making some moaning respirations. HEENT: Pupils are equal. Eyes are deviated to the left. Oropharynx was clear. Cranium, normocephalic and atraumatic. NECK: No lymphadenopathy. CHEST: Clear. ABDOMEN: Rotund and apparently tender to palpation. EXTREMITIES: No cyanosis or edema. NEUROLOGIC: He was aphasic. He had a right facial droop. He would not respond to questions or commands. He had antigravity strength in both upper and lower extremities. Sensation seemed to be intact to stimulation. Plantar responses were downgoing. No abnormal movements were seen. SUMMARY: This is an elderly gentleman who likely had a thrombosis in his left middle cerebral artery. He was already anticoagulated. The only other option would be to add aspirin. His likelihood of being able to swallow was tenuous at this point. Speech will do a reassessment tomorrow. We will see what his family's wishes are in regard to feeding tubes. Job ID: [id number]
--- NOTE | 2019-12-21 11:03 | RAD ---
Chest one view HISTORY: CVA. Groundglass infiltrate. COMPARISON: 05/29/2019. FINDINGS: Cardiac silhouette is magnified and enlarged. Pulmonary vasculature upper limits of normal. Fairly diffuse, widespread mixed interstitial alveolar opacity correlates with that described on rece nt CT neck. No lobar consolidation or evidence of pneumothorax. Mediastinum is midline with a single lead left subclavian cardiac electronic device. IMPRESSION : Mild diffuse reticulonodular opacity, NOT a typical pattern for COVID pneumonitis. Cardiomegaly.
[2019-12-21] MEDS ORDERED: hydrALAZINE 20 MG/ML VIAL SLOW IVP PRN (14:29)
[2019-12-21] MEDS ORDERED: Labetalol HCl 100 MG/20 ML VIAL SLOW IVP PRN (14:44)
[2019-12-21] MEDS ORDERED: Labetalol HCl 100 MG/20 ML VIAL SLOW IVP SCH (16:30)
[2019-12-21] MEDS ORDERED: Furosemide 40 MG/4 ML VIAL SLOW IVP SCH (16:45)
[2019-12-21] MEDS ORDERED: Dexamethasone 6 MG in Sodium Chloride 0.9% 50 ML IVPB SCH (16:45)
[2019-12-21] MEDS ORDERED: levETIRAcetam In NaCl (Iso-Os) 1,000 MG in Premix Bag 1 BAG IVPB SCH (16:45)
[2019-12-21 19:17] LABS: SARS-CoV-2 NAA Rapid Test Not Detected (NotDetected)
[2019-12-21] MEDS ORDERED: Azithromycin 500 MG in Sodium Chloride 0.9% 250 ML 250 ML IVPB SCH (20:00)
[2019-12-21] MEDS ORDERED: Atorvastatin Calcium 40 MG TAB PO SCH (21:00)
[2019-12-21] MEDS ORDERED: Enoxaparin Sodium 120 MG/0.8 ML SYRINGE SC SCH (21:00)
[2019-12-22 05:00] LABS: #Lymphocytes 1.6 thou/uL (1.20-3.40); #Monocytes 0.7 thou/uL (0.11-0.59); %Basophils 0.6 % (0.0-1.0); %Eosinophils 0.2 % (0.0-10.0); %Lymphocytes 19.3 % (21.0-51.0); %Monocytes 8.4 % (0.0-10.0); %Neutrophils 71.5 % (42.0-75.0); Mean Corpuscular HGB CONC 34.4 g/dL (32.0-36.0); Mean Corpuscular Hemoglobin 28.6 pg (27.0-31.0); Mean Corpuscular Volume 83.2 fL (78.0-98.0); Platelet Count 202 thou/uL (130-400); RBC Distribution Width 16.3 % (11.5-14.5); Red Blood Cell (RBC) Count 4.18 mill/uL (4.70-6.10); White Blood Cell (WBC) Count 8.3 thou/uL (4.8-10.8)
[2019-12-22 05:11] VITALS: BP 150/87; TEMP 98.6
[2019-12-22 05:18] LABS: Hemoglobin A1c 4.7 % (4.0-6.0)
[2019-12-22 05:22] LABS: Anion Gap 17 mmol/L (10-20); BUN (Urea Nitrogen) 14 mg/dL (8.4-25.7); Calc. Creatinine Clearance 69 mL/min (70-130); Carbon Dioxide 20 mmol/L (23-31); Cardiac Risk 4.2 (Less than 4.5); Chloride 101 mmol/L (98-107); Cholesterol 185 mg/dl (< 200 Desired); Estimated GFR-MDRD 58; Glucose 179 mg/dL (83-110); HDL Cholesterol 44 mg/dL (>60 Neg Risk); LDL Cholesterol, Calculated 123 mg/dL; Magnesium 1.7 mg/dL (1.6-2.6); Potassium 4.1 mmol/L (3.5-5.1); Sodium 134 mmol/L (136-145); Triglycerides 88 mg/dL (Less than 150)
[2019-12-22] MEDS ORDERED: EPINEPHrine 1 MG/10 ML Abboject SYRINGE ONE (07:08)
--- NOTE | 2019-12-22 07:23 | PDOC.BPN ---
- Brief Progress Note Encounter Date: 12/22/19 Encounter Time: 07:00 Responded to Code Blue. CPR already in progress with hospitalist present. Reported that patient was admitted for a stroke and he became unresponsive at 0650. Asystole on monitor. He did not hav IV access so an IO was established. He was given 1 round of bicarb in addition to 6 rounds of epinephrine during resuscitation. Anesthesia did not present to code. Intubation was attempted by the resident team in conjunction with RT, but unable to be completed successfully. He continued to be bagged. Family was contacted by nursing team. Asystole persisted, no pulse. Code was called and patient was pronounced with TOD 07:16.
[2019-12-22] MEDS ORDERED: Aspirin 300 MG Suppository PR SCH (09:00)
[2019-12-22 12:11] LABS: SARS-CoV-2 MS2 Positive; SARS-CoV-2 N Gene Negative; SARS-CoV-2 S Gene Negative; SARS-CoV-2 by NAA Not Detected (NotDetected); SARS-CoV-2 orf1ab Negative
--- NOTE | 2019-12-22 16:26 | DIS ---
DATE OF ADMISSION: 12/21/2019 DATE OF DISCHARGE: 12/22/2019 DISCHARGE DIAGNOSES: 1. Acute on chronic left MCA stroke. 2. Acute toxic encephalopathy. 3. Hypertensive urgency. 4. Urinary tract infection. 5. Dyslipidemia. 6. Paroxysmal atrial fibrillation with history of permanent pacemaker placement, on Eliquis. 7. History of CVA with residual left-sided weakness. 8. Abnormal CT for ground-glass and mosaic infiltrate at bilateral lung apices. CONSULTATIONS: 1. Neuroradiologist. 2. Neurology, Dr. Turner. LABORATORY DATA AND IMAGING STUDIES: 1. 2D echo showed EF of 50% to 55%. No evidence of vegetation, PFO, or ASD. Atrial fibrillation. 2. Brain CT, extensive chronic finding. No definite acute territorial infarction. 3. CT [place] of [place] angio with contrast, M2 segment acute thrombus extending into his proximal branches of left middle cerebral artery, not mentioned in the preliminary report by [facility]. They are somewhat severe heterogeneous ground-glass and mosaic infiltrate at the bilateral lung apices in addition to numerous small bullae. Occlusion of the proximal third right vertebral artery, reconstitutions, distal 2/3 of the right vertebral artery. LABORATORY DATA: WBC 8.3, hemoglobin 12.0, hematocrit 34.8, platelets 202. INR 1.1. Chemistry; sodium 134, potassium 4.1, chloride is 101, carbon dioxide 20, anion gap 17, BUN 14, creatinine is 1.44. BNP 383, LDL 123, triglycerides 88, INR 1.1. UA is positive for leukocyte esterase and greater than 50 wbc. Urine culture positive for gram negative rods. HISTORY OF PRESENT ILLNESS AND BRIEF HOSPITAL COURSE: The patient is a very unfortunate 79-year-old gentleman, who has significant past medical history of CVA with residual left-sided deficit in 2013, hypertension, paroxysmal atrial fibrillation with status post pacemaker placement and on Eliquis for stroke prophylaxis, who presented to the ED with altered mental status, right facial droop. Apparently, the patient was confused, and developed right favoring gaze and left head tilt, which is unusual per his . His ambulation is limited at baseline, however, he requires more help with ambulation. He also had baseline neuro deficit as well as dysphagia from previous stroke. In the ED, he was found unsteady gait, left-sided weakness, facial droop. He had an NIH scale of 28. Stroke alert was activated. CT head showed extensive chronic findings, however, there are no definitive acute infarctions noted. The patient had a CTA of the head on the preliminary report showed concerning for vertebral arterial occlusion. ED physicians discussed with interventional neuroradiologist, Dr. Sylvester, did not believe that intervention was warranted at that time. He was subsequently admitted to hospitalist service for further stroke workup. In the ED, apparently, he was agitated and required sedation with IV Ativan, and also soft restraints for the patient's safety. His blood pressure was noted elevated, however, permissive hypertension was allowed due to his acute stroke. His UA was positive for urinary tract infection, he also started on Rocephin empirically while awaiting for urine culture resulted. I assumed care, and was notified by nursing staff supervisors, around 10 a.m. on 12/21/2019, after his CTA of the head was reviewed by our radiologist, apparently there is a M2 segment acute thrombus extending into his proximal branches of the left MCA artery that was not previously mentioned on his initial reading by [facility]. I immediately called and discussed with Dr. Sylvester, who also reviewed the imaging study; however, he was deemed not amenable for intervention. The patient was also seen by Neurology as well. Given the fact that his altered mental status is not able to tolerate p.o., his Eliquis was changed to subcutaneous Lovenox for the time being. He also developed a fever. His COVID came back negative. Given his abnormal CT findings of his chest, I started him on broad-spectrum IV antibiotics for possible pneumonia. Blood culture was obtained. On the following day, 12/22/2019 around shift change at around 645, patient was apparently found unresponsive. Sarah Feng was called. Please refer to the Sarah Feng's note for further details. I was notified by the nurses staff, that the patient was unsuccessfully resuscitated. By the time I arrived at the patient's room slightly after 7AM, the Code Team has pronounced the patient. The patient was at 7:16 a.m. Nurses staff also notified his family. I met with multiple family members at bedside, they are coping appropriately at bedside. I have answered all their questions. DISPOSITION: The patient . Please refer to Sarah Feng notes for further details. Job ID: [id number] [facility]
--- NOTE | 2019-12-23 16:29 | PQF ---
CLINICAL DOCUMENTATION CLARIFICATION FORM: Dear Dr. Andrade Date: 12/23/2019 Please exercise your independent, professional judgment in responding to the clarification form. Clinical indicators are provided on the bottom of this form for your review. Please check appropriate box(s): [ X ] Cardio respiratory arrest [ ] Respiratory cardiac arrest [ ] Asystole without cardiac arrest [ ] Other diagnosis [ ] Unable to determine For continuity of documentation, please document condition throughout progress notes and discharge summary. Thank You. CLINICAL INDICATORS - SIGNS / SYMPTOMS / LABS / RESULTS AND LOCATION IN EMR *Note (Nursing) 12/21 at 0800: * 06:36: licensed psychiatric technician called this nurse to ask this nurse to check on patient d/t increased heart rate on monitor, this nurse entered room, noted patient laying face down, called name, rubbed shoulder, not responding to name, Attempted to arouse pt with sternal rub and stimuli to nailbed, pt still unresponsive Applied pulse ox monitor to patients ear, pulse ox read 84% ... *Code Record 12/21 (EMR): * Type of Arrest: Both * Pre-code EKG rhythm: Paced * Post-code EKG rhythm: Asystole * Code Blue called when pts HR 140s & pt (per nurse) unresponsive. *PN 12/21 (Kimym): Responded to Code Blue. CPR already in progress . He became unresponsive at 0650. Asystole on monitor. Asystole persisted, no pulse. RISK FACTORS / RESULTS AND LOCATION IN EMR *H&P 12/20 (Aterno): * PMH CVA HTN atrial fibrillation * EKG: Atrial fibrillation 107 beats per minute * HTN urgency *Consultation 12/20 (Yue): ... 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 TREATMENTS / RESULTS AND LOCATION IN EMR *Note (Nursing) 12/21 at 0800: Code green called. *Code Record 12/21 (EMR): O2 mask and bag Epinephrine . Na Bicarb Calcium chl 10% *PN 12/21 (Kimmy): Code Blue. CPR in progress . IO was established. He was given 1 round of bicarb in addition to 6 rounds of epinephrine during resuscitation. Intubation was attempted by the resident team in conjunction with RT, but was unable to be completed successfully. He continued to be bagged. Thank you, Maribel CDS/Enrollment Nurse Signature: Maribel Sam RN, CDS Phone #: [phone] [email or web address] This is a permanent part of the Medical Record [facility]
--- NOTE | 2019-12-23 16:56 | PQF ---
CLINICAL DOCUMENTATION CLARIFICATION FORM: Dear Dr. Andrade Date: 12/23/2019 Please exercise your independent, professional judgment in responding to the clarification form. Clinical indicators are provided on the bottom of this form for your review. Please check appropriate box(s): [ X ] Sepsis [ ] Localized Infection without Sepsis [ ] SIRS due to non-infectious process (please specify): [ ] with associated organ dysfunction [ ] without associated organ dysfunction [ ] Other diagnosis [ ] Unable to determine In addition, please specify: Present on Admission (POA): [ X ] Yes [ ] No [ ] Unable to determine For continuity of documentation, please document condition throughout progress notes and discharge summary. Thank You. CLINICAL INDICATORS - SIGNS / SYMPTOMS / LABS / RESULTS AND LOCATION IN EMR *ED 12/20: * Vital Signs: Pulse 100-134 * EKG atrial fibrillation with rapid ventricular response *H&P 12/20 (Aterno): * UTI * Suspected metabolic encephalopathy * Would not be surprised if some part of current state was due to UTI and encephalopathy. *PN 12/20 (Le): * Acute toxic encephalopathy- likely combination of medication side effects and in setting of acute CVA, and UTI * Groundglass and mosaic infiltrate at bilateral lungs apices noted on CTA No fever. *Vital Signs 12/20 at 1604 (EMR): Temp 101.5 * (EMR): WBC Neutrophils% 12/19 8.0 52.3 12/20 8.3 71.5 *DC Summary 12/21 (Le): * UA is positive for leukocyte esterase and greater than 50 wbc. Urine culture positive for gram negative rods. * Given his abnormal CT findings of his chest, I will start him on broad- spectrum IV antibiotics for possible pneumonia. RISK FACTORS / RESULTS AND LOCATION IN EMR *H&P 12/20 (Aterno): UTI *DC Summary 12/21 (Le): Possible pneumonia. TREATMENTS / RESULTS AND LOCATION IN EMR *H&P 12/20 (Aterno): Urine culture . Ceftriaxone continue Flomax PRN Ativan and treat UTI . *PN 12/20 (Le): Check CXR, follow Covid PCR. *LAB (EMR): CBC 12/19-12/20 *Microbiology: Blood culture x2 12/20, Urine Culture 12/20 Thank you, Maribel CDS/Campus Safety Officer Signature: Maribel Sam RN, CDS Phone #: [phone] [email or web address] This is a permanent part of the Medical Record [facility]
== END 2019-12-22 07:16 | disposition expired | DRG 64 ==
LOC: ERS 23:41 → 2NO 12-21 04:19 → 2SE 12-21 13:12
PROVIDERS: ADMIT Internal Medicine; ATTEND Internal Medicine
PROC: 5A12012 Performance of Cardiac Output, Single, Manual (ICD-10-PCS; principal; 2019-12-22)
DX: I63.312 Cerebral infarction due to thrombosis of left middle cerebral artery (principal); G92 Toxic encephalopathy; R40.2222 Coma scale, best verbal response, incomprehensible words, at arrival to emergency department; A41.9 Sepsis, unspecified organism; J18.9 Pneumonia, unspecified organism; N39.0 Urinary tract infection, site not specified; I69.354 Hemiplegia and hemiparesis following cerebral infarction affecting left non-dominant side; Z20.828 Contact with and (suspected) exposure to other viral communicable diseases; R29.810 Facial weakness; R40.2142 Coma scale, eyes open, spontaneous, at arrival to emergency department; R40.2352 Coma scale, best motor response, localizes pain, at arrival to emergency department; R29.728 NIHSS score 28; I16.0 Hypertensive urgency; R47.01 Aphasia; I65.01 Occlusion and stenosis of right vertebral artery; I10 Essential (primary) hypertension; E78.5 Hyperlipidemia, unspecified; I48.0 Paroxysmal atrial fibrillation; M19.90 Unspecified osteoarthritis, unspecified site; R13.10 Dysphagia, unspecified; I46.9 Cardiac arrest, cause unspecified; Z95.0 Presence of cardiac pacemaker; Z79.01 Long term (current) use of anticoagulants; I69.391 Dysphagia following cerebral infarction; Z78.1 Physical restraint status
CPT/HCPCS: 36415; 36416; 70450; 70496; 70498; 71045; 80048; 80053; 80061; 80306; 80307; 81003; 81015; 82550; 83036; 83735; 83880; 84484; 85025; 85610; 85730; 87040; 87077; 87086; 87186; 87635; 92950; 93005; 93306; 96374; 96376; J0171; J0456; J0696; J1100; J1650; J1940; J1953; J2060; J3490; J7050; U0002; U0003